=== PATIENT | female | born 1935 | race Caucasian/White ===

== ENCOUNTER → 2016-12-24 | Outpatient (CLI) | payer MEDICARE, BC ==
--- NOTE | 2016-12-24 11:40 | XR ---
EXAMINATION TYPE: XR Hip Bilateral and AP pelvis DATE OF EXAM: 12/24/2016 COMPARISON: NONE HISTORY: Bilateral hip pain. TECHNIQUE: A single AP view of the pelvis is obtained. Two views of the bilateral hips are obtained. FINDINGS: There is no acute fracture/dislocation evident in the pelvis. There is mild symmetric ceph alad joint space narrowing of the femoral acetabular joints with acetabular roof sclerosis. The over lying soft tissue appears unremarkable. No focal lytic or sclerotic lesion seen in the maximal femurs. Levoconvex scoliotic curvature of the lower lumbar spine is appreciated with moderate to severe degenerative change at L4-L5 and moderate c hange at L5-S1 demonstrates facet arthropathy, intervertebral disc space narrowing, and marginal oste ophytes. IMPRESSION: 1. There is no acute fracture or dislocation in the pelvis hips. 2. Mild bilateral osteoarthrosis. 4. Degenerative changes of the visualized lumbosacral spine.
--- NOTE | 2016-12-24 11:55 | XR ---
EXAMINATION TYPE: XR lumbosacral spine min 4V DATE OF EXAM: 12/24/2016 CLINICAL HISTORY: pain COMPARISON: NONE TECHNIQUE: Frontal, lateral, and oblique images of the lumbar spine are obtained. FINDINGS: There are 5 lumbar type vertebral bodies identified. Severe multilevel degenerative disc d isease with vacuum disc at L3-4 and L4-5. Endplate sclerosis and mild ventral spondylosis. Severe low er lumbar facet joint arthropathy. Grade 1 anterolisthesis L4 and L5 of 9.6 mm. No compression fractu re or bony destructive process seen. Borderline infrarenal abdominal aortic aneurysm. IMPRESSION: Multilevel degenerative disc disease and spondylosis.
== END ==
LOC: RADXRMAIN 11:09
PROVIDERS: ATTEND Internal Medicine
DX: M51.36 Other intervertebral disc degeneration, lumbar region (principal); M47.817 Spondylosis without myelopathy or radiculopathy, lumbosacral region; M16.0 Bilateral primary osteoarthritis of hip
CPT/HCPCS: 72110; 73521

== ENCOUNTER → 2017-07-14 | Outpatient (CLI) | payer MEDICARE, BC ==
[2017-07-14 12:03] LABS: Basophils % (A) 0 %; Eosinophils # (A) 0.2 k/uL (0-0.7); Eosinophils % (A) 2 %; HCT 37.6 % (34.0-46.0); HGB 12.2 gm/dL (11.4-16.0); Lymphocytes # (A) 1.9 k/uL (1.0-4.8); Lymphocytes % (A) 23 %; MCH 30.4 pg (25.0-35.0); MCHC 32.5 g/dL (31.0-37.0); MCV 93.5 fL (80.0-100.0); Mean Platelet Volume 7.1; Monocytes # (A) 0.5 k/uL (0-1.0); Monocytes % (A) 6 %; Neutrophils # (A) 5.3 k/uL (1.3-7.7); Neutrophils % (A) 66 %; Platelet Count 281 k/uL (150-450); RBC 4.02 m/uL (3.80-5.40); WBC 8.1 k/uL (3.8-10.6)
[2017-07-14 12:18] LABS: Albumin 4.2 g/dL (3.5-5.0); Calcium 10.2 mg/dL (8.4-10.2); Total Bilirubin 0.6 mg/dL (0.2-1.3); Total Protein 7.4 g/dL (6.3-8.2)
[2017-07-14 12:30] LABS: T4, Free (Free Thyroxine) 1.13 ng/dL (0.78-2.19)
[2017-07-14 13:02] LABS: Potassium 4.5 mmol/L (3.5-5.1)
== END | disposition home or self-care (01) ==
LOC: LABWHC1 10:47
PROVIDERS: ATTEND Internal Medicine
DX: E78.5 Hyperlipidemia, unspecified (principal); I10 Essential (primary) hypertension; R68.89 Other general symptoms and signs
CPT/HCPCS: 36415; 80053; 80061; 84439; 84443; 85025

== ENCOUNTER 2018-12-10 15:27 | Inpatient (IN) | payer MEDICARE, BC ==
[2018-12-10] MEDS ORDERED: SODIUM CHLORIDE 0.9% 1,000 ML IV STA (15:33)
[2018-12-10] MEDS ORDERED: MORPHINE SULFATE 4 MG/ML SYRINGE IVP STA (15:34)
--- NOTE | 2018-12-10 15:34 | ED ---
Fall HPI - General Stated Complaint: Fall Time Seen by Provider: 12/10/18 15:33 Source: RN notes reviewed, old records reviewed Mode of arrival: EMS Limitations: no limitations - History of Present Illness Initial Comments: This is an 83-year-old female the ER status post fall. Patient fall off a step when she tripped or lost her balance complaining of significant right leg pain with deformity noted per EMS in significant right wrist pain. Patient denies loss of consciousness no blood thinners. No prior orthopedic surgery MD Complaint: fall -: minutes(s) Fall From: standing (1.), from height (distance) When Fall Occurred: 1 hour AMBULATORY CARE Fall Witnessed: yes, by family Place Fall Occurred: home Loss of Consciousness: none Prolonged Down Time?: no Symptoms Prior to Fall: none Location: pelvis Location - Extremities: Right: Forearm, Hand, Knee Severity: severe Severity scale (1-10): 7 Quality: stabbing Context: tripped/slipped Associated Symptoms: denies - Related Data Home Medications Medication Instructions Recorded Confirmed Omeprazole 20 mg PO DAILY 12/10/18 12/10/18 amLODIPine [Norvasc] 5 mg PO HS 12/10/18 12/10/18 Allergies Allergy/AdvReac Type Severity Reaction Status Date / Time Penicillins Allergy Unknown Verified 12/10/18 16:05 latex AdvReac Itching Verified 12/10/18 16:51 Review of Systems ROS Statement: Those systems with pertinent positive or pertinent negative responses have been documented in the HPI. ROS Other: All systems not noted in ROS Statement are negative. Past Medical History - Past Family History Father Family Medical History: Cancer Additional Family Medical History / Comment(s): lung cancer- age 62 General Exam - General Exam Comments Initial Comments: Right wrist deformity, right knee deformity Patient has positive radial pulses right wrist Patient has dorsalis pedis and posterior tibialis pulses right lower extremity General appearance: alert, in no apparent distress Head exam: Present: atraumatic, normocephalic, normal inspection Eye exam: Present: normal appearance, PERRL, EOMI. Absent: scleral icterus, conjunctival injection, periorbital swelling ENT exam: Present: normal exam, mucous membranes moist Neck exam: Present: normal inspection. Absent: tenderness, meningismus, lymphadenopathy Respiratory exam: Present: normal lung sounds bilaterally. Absent: respiratory distress, wheezes, rales, rhonchi, stridor Cardiovascular Exam: Present: regular rate, normal rhythm, normal heart sounds. Absent: systolic murmur, diastolic murmur, rubs, gallop, clicks GI/Abdominal exam: Present: soft, normal bowel sounds. Absent: distended, tenderness, guarding, rebound, rigid Extremities exam: Present: normal inspection, full ROM, normal capillary refill. Absent: tenderness, pedal edema, joint swelling, calf tenderness Back exam: Present: normal inspection Neurological exam: Present: alert, oriented X3, CN II-XII intact Psychiatric exam: Present: normal affect, normal mood Skin exam: Present: warm, dry, intact, normal color. Absent: rash Course Vital Signs 12/10/18 12/10/18 15:34 17:20 Temperature 98.0 F 98.0 F Pulse Rate 76 72 Respiratory 18 18 Rate Blood Pressure 159/88 128/76 O2 Sat by Pulse 100 97 Oximetry - Reevaluation(s) Reevaluation #1: Medical record is reviewed and patient has pain control Spoke with patient's family regarding care of her , they are aware Patient's fractures are splinted, good pulses noted Procedures - Orthopedic Splinting/Casting Injury #1 Side: right Upper Extremity Injury Location: wrist Upper Extremity Immobilizer: wrist splint Injury #2 Side: right Lower Extremity Injury Location: knee Lower Extremity Immobilizer: knee immobilizer Medical Decision Making - Medical Decision Making 83 female the ER for evaluation, patient will be admitted for evaluation breath. Surgery for both wrist and femur fractures right-sided. Patient has good pain control currently - Lab Data Result diagrams: 12/10/18 16:00 12/10/18 16:00 Lab Results 12/10/18 12/10/18 12/10/18 Range/Units 16:00 16:00 16:00 WBC 7.1 (3.8-10.6) k/uL RBC 3.74 L (3.80-5.40) m/uL Hgb 11.6 (11.4-16.0) gm/dL Hct 34.7 (34.0-46.0) % MCV 93.0 (80.0-100.0) fL MCH 31.0 (25.0-35.0) pg MCHC 33.3 (31.0-37.0) g/dL RDW 14.1 (11.5-15.5) % Plt Count 275 (150-450) k/uL Neutrophils % 77 % Lymphocytes % 14 % Monocytes % 5 % Eosinophils % 2 % Basophils % 1 % Neutrophils # 5.5 (1.3-7.7) k/uL Lymphocytes # 1.0 (1.0-4.8) k/uL Monocytes # 0.4 (0-1.0) k/uL Eosinophils # 0.1 (0-0.7) k/uL Basophils # 0.0 (0-0.2) k/uL PT 10.1 (9.0-12.0) sec INR 0.9 (<1.2) APTT 23.2 (22.0-30.0) sec Sodium 140 (137-145) mmol/L Potassium 3.9 (3.5-5.1) mmol/L Chloride 108 H (98-107) mmol/L Carbon Dioxide 23 (22-30) mmol/L Anion Gap 9 mmol/L BUN 25 H (7-17) mg/dL Creatinine 0.89 (0.52-1.04) mg/dL Est GFR (CKD-EPI)AfAm 68 (>60 ml/min/1.73 sqM) Est GFR (CKD-EPI)NonAf 59 (>60 ml/min/1.73 sqM) Glucose 119 H (74-99) mg/dL Calcium 9.1 (8.4-10.2) mg/dL Total Bilirubin 0.4 (0.2-1.3) mg/dL AST 23 (14-36) U/L ALT 23 (9-52) U/L Alkaline Phosphatase 81 (38-126) U/L Troponin I (0.000-0.034) ng/mL Total Protein 6.2 L (6.3-8.2) g/dL Albumin 3.5 (3.5-5.0) g/dL Serum Alcohol <10 mg/dL Blood Type Blood Type Recheck Antibody Screen Spec Expiration Date 12/10/18 12/10/18 Range/Units 16:00 16:00 WBC (3.8-10.6) k/uL RBC (3.80-5.40) m/uL Hgb (11.4-16.0) gm/dL Hct (34.0-46.0) % MCV (80.0-100.0) fL MCH (25.0-35.0) pg MCHC (31.0-37.0) g/dL RDW (11.5-15.5) % Plt Count (150-450) k/uL Neutrophils % % Lymphocytes % % Monocytes % % Eosinophils % % Basophils % % Neutrophils # (1.3-7.7) k/uL Lymphocytes # (1.0-4.8) k/uL Monocytes # (0-1.0) k/uL Eosinophils # (0-0.7) k/uL Basophils # (0-0.2) k/uL PT (9.0-12.0) sec INR (<1.2) APTT (22.0-30.0) sec Sodium (137-145) mmol/L Potassium (3.5-5.1) mmol/L Chloride (98-107) mmol/L Carbon Dioxide (22-30) mmol/L Anion Gap mmol/L BUN (7-17) mg/dL Creatinine (0.52-1.04) mg/dL Est GFR (CKD-EPI)AfAm (>60 ml/min/1.73 sqM) Est GFR (CKD-EPI)NonAf (>60 ml/min/1.73 sqM) Glucose (74-99) mg/dL Calcium (8.4-10.2) mg/dL Total Bilirubin (0.2-1.3) mg/dL AST (14-36) U/L ALT (9-52) U/L Alkaline Phosphatase (38-126) U/L Troponin I <0.012 (0.000-0.034) ng/mL Total Protein (6.3-8.2) g/dL Albumin (3.5-5.0) g/dL Serum Alcohol mg/dL Blood Type O Positive Blood Type Recheck CABO Indicated Antibody Screen NEGATIVE Spec Expiration Date 12/13/20182299 - Radiology Data Radiology results: report reviewed (CT brain C-spine negative for acute disease, x-ray right wrist x-ray right knee does show both Colles' fracture right wrist and distal femur fracture right femur), image reviewed Disposition Clinical Impression: Fall, Closed fracture of right distal femur, Right wrist fracture Disposition: ADMITTED IP TO THIS [facility] Condition: Serious Is patient prescribed a controlled substance at d/c from ED?: No
--- NOTE | 2018-12-10 15:58 | XR ---
EXAMINATION TYPE: XR knee limited RT DATE OF EXAM: 12/10/2018 COMPARISON: NONE HISTORY: Pain TECHNIQUE: 3 views FINDINGS: There is a supracondylar comminuted fracture of the distal femur. There is posterior displa cement of the distal major fragments 2 cm. There is no dislocation. Proximal tibia and fibula appear intact. IMPRESSION: Acute supracondylar fracture of the distal femur.
[2018-12-10 16:15] LABS: Basophils % (A) 1 %; Eosinophils # (A) 0.1 k/uL (0-0.7); Eosinophils % (A) 2 %; HCT 34.7 % (34.0-46.0); HGB 11.6 gm/dL (11.4-16.0); Lymphocytes % (A) 14 %; MCHC 33.3 g/dL (31.0-37.0); Mean Platelet Volume 6.9; Monocytes # (A) 0.4 k/uL (0-1.0); Monocytes % (A) 5 %; Neutrophils # (A) 5.5 k/uL (1.3-7.7); Neutrophils % (A) 77 %; Platelet Count 275 k/uL (150-450); RBC 3.74 m/uL (3.80-5.40); RDW 14.1 % (11.5-15.5); WBC 7.1 k/uL (3.8-10.6)
[2018-12-10 16:23] LABS: INR 0.9 (<1.2); Partial Thromboplastin Time 23.2 sec (22.0-30.0); Prothrombin Time 10.1 sec (9.0-12.0)
[2018-12-10 16:25] LABS: ALT 23 U/L (9-52); AST 23 U/L (14-36); African American GFR (CKD) 68 (>60 ml/min/1.73 sqM); Albumin 3.5 g/dL (3.5-5.0); Alcohol <10 mg/dL; Alkaline Phosphatase 81 U/L (38-126); Anion Gap 9 mmol/L; Blood Urea Nitrogen 25 mg/dL (7-17); Calcium 9.1 mg/dL (8.4-10.2); Carbon Dioxide 23 mmol/L (22-30); Chloride 108 mmol/L (98-107); Glucose 119 mg/dL (74-99); Potassium 3.9 mmol/L (3.5-5.1); Sodium 140 mmol/L (137-145); Total Bilirubin 0.4 mg/dL (0.2-1.3); Total Protein 6.2 g/dL (6.3-8.2)
--- NOTE | 2018-12-10 16:39 | CT ---
EXAMINATION TYPE: CT brain michelle bruner DATE OF EXAM: 12/10/2018 COMPARISON: None HISTORY: pt fall down step. Headache. Neck pain. CT DLP: 1253.7 mGycm Automated exposure control for dose reduction was used. TECHNIQUE: CT scan of the head and cervical spine are performed without contrast. FINDINGS: There is some cerebral cortical atrophy. There is no mass effect nor midline shift. There is no sign of intracranial hemorrhage. Calvarium is intact. There is mucosal thickening in the left maxillary sinus. Cervical vertebra have normal alignment. There is narrowing of the C4-5 C5-6 C6-7 disc spaces with sp ur formation. Facet joints are intact. Skull base is intact. There is no evidence of a fracture. Ther e is no bony destructive process. There is pleural thickening in the lung apices. IMPRESSION: Cerebral atrophy. No acute intracranial abnormality. Left maxillary sinusitis. Spondylotic changes in the cervical spine. No fracture.
--- NOTE | 2018-12-10 17:31 | XR ---
EXAMINATION TYPE: XR wrist complete RT DATE OF EXAM: 12/10/2018 COMPARISON: NONE HISTORY: Pain after falling TECHNIQUE: 4 views FINDINGS: There is impacted comminuted transverse fracture of the distal radius. There is nondisplace d fracture ulnar styloid process. Carpal bones are intact. Detail is limited by the cast. There is sa tisfactory position of the fragments. IMPRESSION: Radius and ulna fractures as above. No complicating process seen. Fractures appear acute.
--- NOTE | 2018-12-10 19:42 | XR ---
EXAMINATION TYPE: XR chest 1V portable DATE OF EXAM: 12/10/2018 COMPARISON: 06/30/2017 HISTORY: Fall. Pain. TECHNIQUE: Single frontal view of the chest is obtained. FINDINGS: There is no heart failure nor confluent pneumonic infiltrate. There is left clavicle old h ealed fracture. Costophrenic angles are clear. IMPRESSION: No active cardiopulmonary disease. No change.
[2018-12-10] MEDS: amLODIPine 5 MG TAB PO SCH (20:42)
[2018-12-10 22:12] LABS: Appearance,Urine Clear (Clear); Bacteria,Urine Rare /hpf; Bilirubin,Urine Negative (Negative); Blood,Urine Negative (Negative); Color,Urine Yellow; Glucose,Urine (UA) Negative (Negative); Ketones,Urine 1+ (Negative); Leukocyte Esterase,Urine Trace (Negative); Mucus,Urine Rare /hpf; Nitrite,Urine Negative (Negative); Protein,Urine Negative (Negative); RBC,Urine 1 /hpf (0-5); Specific Gravity,Urine 1.014 (1.001-1.035); Squamous Epithelial Cell,Urine <1 /hpf (0-4); Urobilinogen,Urine <2.0 mg/dL (<2.0); WBC,Urine 9 /hpf (0-5)
[2018-12-11] MEDS: MORPHINE SULFATE 4 MG/ML SYRINGE IVP PRN ×2 (00:29→08:05)
--- NOTE | 2018-12-11 02:12 | CONS ---
CONSULTATION REASON FOR CONSULTATION: Advice regarding hypertension, GERD, multiple medical issues requested by Dr. Newman. HISTORY OF PRESENT ILLNESS: This is 83-year-old woman with a past history of multiple medical problems including hypertension, GERD, being followed by Dr. Livingston in the outpatient setting. The patient apparently missed a step and the patient fell down and the patient had multiple fractures. The patient was noted to have closed fracture of the right distal femur and right and right wrist fracture and patient evaluation and treatment. CT scan of the head and pelvis and also of the cervical spine was also done which showed no acute abnormality and spondylitic changes and cerebral atrophy. There is no history of fever, rigors, no headache, loss of consciousness or seizures. Previous exercise tolerance appears to be excellent. There is no history of cardiorespiratory illness. PAST MEDICAL HISTORY: Of GERD, hypertension. MEDICATIONS: Prior to admission include home medications are: 1. Norvasc 5 mg p.o. daily. 2. Omeprazole 20 mg daily. ALLERGIES: PENICILLIN. LATEX. FAMILY HISTORY: No history of heart disease or strokes in the family. SOCIAL HISTORY: No history of smoking. No history of alcohol intake. REVIEW OF SYSTEMS: ENT: Diminished vision. Diminished hearing. Cardiovascular: No angina or hemoptysis. GI no nausea or vomiting. no dysuria. Nervous system: No numbness or weakness. ALLERGY/IMMUNOLOGY: No asthma or hay fever. MUSCULOSKELETAL: As mentioned hematology. HEMATOLOGY/ONCOLOGY: No history of anemia. ENDOCRINE: No history of diabetes or hypothyroidism. CONSTITUTIONAL: As mentioned earlier. DERMATOLOGY: Negative. RHEUMATOLOGY negative. PSYCHIATRY as mentioned earlier. PHYSICAL EXAMINATION: Alert and oriented times three. Pulse 72, blood pressure 128/76, respiration 18, temperature 98 degrees, pulse ox 97% on room air. HEENT is conjunctivae normal. Oral mucosa moist. Neck is no jugular venous distention. No carotid bruit. No lymph enlargement. Cardiovascular S1-S2 respiration. Breath sounds diminished in the the bases. No rhonchi. No crackles. ABDOMEN: Soft, nontender. No mass palpable. Legs status post right distal femur fracture fixation of the right arm, status post wrist fracture. NERVOUS SYSTEM: Higher functions as mentioned earlier, moves all four limbs. Lymphatics: No lymph nodes palpable in the neck, axillae or groin. SKIN: No ulcer, rash or bleeding. arthropathy. LABS: CBC within normal limits. Sodium 140 potassium 3.9 and glucose 119. ASSESSMENT: 1. Status post fall and right and closed right distal femur fracture and right wrist fracture. 2. Hypertension. 3. Gastroesophageal reflux disease. 4. Increased random blood sugar. 6. Mild to moderate protein calorie malnutrition with BMI of 19.7 Recommendations and discussion This 83-year-old woman who presented with multiple medical issues, at this time I recommend to continue current management and treatment. I would also recommend baseline EKG and chest x-ray. The patient cleared for surgery. The patient had excellent exercise tolerance and we will follow the patient after surgery we will follow the patient closely with you. Thank you Dr Newman for letting us participate in the care of this patient. MMKELSEYL / SHAMIRN: [id number] / MTDD
[2018-12-11] MEDS: PANTOPRAZOLE 40 MG TABLET PO SCH (08:03)
[2018-12-11 09:42] LABS: Glucose,Whole Blood 118 mg/dL (75-99)
--- NOTE | 2018-12-11 11:59 | CT ---
EXAMINATION TYPE: CT knee RT wo/w con DATE OF EXAM: 12/11/2018 COMPARISON: X-ray 12/10/2018 HISTORY: knee pain, presurgical planning CT DLP: 241 mGycm Automated exposure control for dose reduction was used. CONTRAST: Performed without and with IV Contrast, patient injected with 100 mL of Isovue 300. FINDINGS: There is a comminuted displaced fracture involving the distal diaphysis of the right femur extending to the articular surface displacement. Large area of soft tissue edema or hematoma noted. There appea rs to be evidence of a popliteal fossa cyst measuring approximately 2.0 cm. Pre-existing arthropathy of the tricompartment space noted with no erosive changes. Spurring involvin g the medial femoral condyle noted. IMPRESSION: DISPLACED COMMINUTED FRACTURE OF THE DISTAL FEMUR EXTENDING TO THE ARTICULAR SURFACE. EXTENSIVE SOFT TISSUE EDEMA OR HEMATOMA NOTED. POPLITEAL FOSSA CYST MEASURING APPROXIMATELY 2 CM.
[2018-12-11] MEDS: SULFAMETHOX-TMP 800-160MG 1 EACH TAB PO SCH ×2 (14:29→21:52)
[2018-12-11] MEDS: LACTATED RINGERS 1,000 ML IV SCH (14:29)
[2018-12-11] MEDS: HEPARIN SODIUM,PORCINE 5,000 UNIT/ML 1 ML VIAL SQ SCH ×2 (14:29→21:52)
[2018-12-11] MEDS: HYDROcodone/APAP 7.5-325MG 1 EACH TAB PO PRN (14:36)
--- NOTE | 2018-12-11 14:45 | P.HPOR ---
History of Present Illness H&P Date: 12/11/18 Chief Complaint: Right femur fracture, Right wrist fracture Patient is a pleasant 83 year old female seen at bedside this morning. She was admitted through the ED yesterday after a fall at home resulted in right wrist and leg injuries. She states she misstepped coming down some steps and fell causing injury to her right leg and wrist. She denies new numbness or tingling to the right upper and lower extremities. She has pain as expected. No other complaints Review of Systems All systems: negative Constitutional: Denies chills, Denies fever Eyes: denies blurred vision, denies pain Ears, nose, mouth and throat: Denies headache, Denies sore throat Cardiovascular: Denies chest pain, Denies shortness of breath Respiratory: Denies cough Gastrointestinal: Denies abdominal pain, Denies diarrhea, Denies nausea, Denies vomiting Genitourinary: Denies dysuria, Denies hematuria Musculoskeletal: Denies myalgias Integumentary: Denies pruritus, Denies rash Neurological: Denies numbness, Denies weakness Psychiatric: Denies anxiety, Denies depression Endocrine: Denies fatigue, Denies weight change Past Medical History Past Medical History: GERD/Reflux, Hypertension History of Any Multi-Drug Resistant Organisms: None Reported Past Surgical History: Hysterectomy, Orthopedic Surgery Additional Past Surgical History / Comment(s): back surgery, kindey stones- surgery to remove stones, left shoulder- plate Past Anesthesia/Blood Transfusion Reactions: Postoperative Nausea & Vomiting (PONV) Smoking Status: Never smoker - Past Family History Father Family Medical History: Cancer Additional Family Medical History / Comment(s): lung cancer- age 62 Medications and Allergies Home Medications Medication Instructions Recorded Confirmed Type Omeprazole 20 mg PO DAILY 12/10/18 12/10/18 History amLODIPine [Norvasc] 5 mg PO HS 12/10/18 12/10/18 History Allergies Allergy/AdvReac Type Severity Reaction Status Date / Time Penicillins Allergy Unknown Verified 12/10/18 16:05 latex AdvReac Itching Verified 12/10/18 16:51 Physical Examination RUE shows exam consistent with distal radius fracture where there is swelling and echymosis. NVI with sensation and motor distally in all digits. 2+ radial pulse present and less than 2 sec cap refill. RLE shows no deformity. There is swelling and exchymosis at the right knee. ROM not tested due to fracture. No wounds or erythema. Calf is SNT. NVI distally. 2+ DP pulse and less than 2 sec cap refill present. Results Xrays of the right wrist shows a comminuted impacted dorsal angulated distal radius fracture. Xrays of right knee shows distal femur fracture that is comminuted and displaced. - Labs Labs: Abnormal Lab Results - Last 24 Hours (Table) 12/10/18 12/10/18 12/10/18 Range/Units 16:00 16:00 21:57 RBC 3.74 L (3.80-5.40) m/uL Chloride 108 H (98-107) mmol/L BUN 25 H (7-17) mg/dL Glucose 119 H (74-99) mg/dL POC Glucose (mg/dL) (75-99) mg/dL Total Protein 6.2 L (6.3-8.2) g/dL Urine Ketones 1+ H (Negative) Ur Leukocyte Esterase Trace H (Negative) Urine WBC 9 H (0-5) /hpf Urine Bacteria Rare H (None) /hpf Urine Mucus Rare H (None) /hpf 12/11/18 Range/Units 09:39 RBC (3.80-5.40) m/uL Chloride (98-107) mmol/L BUN (7-17) mg/dL Glucose (74-99) mg/dL POC Glucose (mg/dL) 118 H (75-99) mg/dL Total Protein (6.3-8.2) g/dL Urine Ketones (Negative) Ur Leukocyte Esterase (Negative) Urine WBC (0-5) /hpf Urine Bacteria (None) /hpf Urine Mucus (None) /hpf H & H 12/10/18 Range/Units 16:00 Hgb 11.6 (11.4-16.0) gm/dL Hct 34.7 (34.0-46.0) % Coagulation 12/10/18 Range/Units 16:00 INR 0.9 (<1.2) Result Diagrams: 12/10/18 16:00 12/10/18 16:00 - Diagnostic results Wrist/Hand x-ray: report reviewed, image reviewed Knee x-ray: report reviewed, image reviewed Assessment and Plan (1) Closed fracture of right distal femur Narrative/Plan: Patient has been seen by Dr. Baxter. The plan is to proceed with surgical intervention December 12 including an ORIF of right distal femur fracture. We will also reduce the right wrist while she is in the OR. She has been cleared for surgery by medicine. She is NPO after MN. The procedure has been scheduled/boarded. She will need placement post operatively. Current Visit: Yes Status: Acute Priority: Medium Code(s): S72.401A - UNSP FRACTURE OF LOWER END OF RIGHT FEMUR, INIT FOR CLOS FX SNOMED Code(s): 994713167 (2) Right wrist fracture Current Visit: Yes Status: Acute Priority: Medium Code(s): S62.101A - FRACTURE OF UNSP CARPAL BONE, RIGHT WRIST, INIT FOR CLOS FX SNOMED Code(s): 419575046 Time with Patient: Less than 30
--- NOTE | 2018-12-11 15:10 | P.CNPUL ---
History of Present Illness Consult date: 12/11/18 Chief complaint: Fall, right femur fracture History of present illness: A 53-year-old female patient, a primary of Dr. Francis, came into the ED after she fell at home and she sustained a fracture to her right wrist and femur. The patient stated that she missed a step as she was coming down the steps and she fell causing injury to herself. She is neurovascularly intact. Currently she is in bed resting comfortable. No issues with pain. The CAT scan of the brain showed cerebral atrophy. There was evidence of some left maxillary sinus di sease. Spondylitic changes in the cervical spine without any fracture. X-ray of the knee was within normal limits. X-ray of the wrist showed a fracture in the radius and ulna which would acute and the patient is currently wearing a soft cast and render x-ray of the lower extremity showed an acute supracondylar fracture of the distal femur on the right. The patient was seen by Dr. Baxter and the patient will be taken to the operating room tomorrow. No chest pain. No shortness of breath. No altered mentation. There is a closed fracture of the right distal femur. She is hemodynamically stable at this point in time. Review of Systems Constitutional: Denies chills, Denies fever Eyes: denies as per HPI, denies blurred vision, denies bulging eye, denies decreased vision, denies diplopia, denies discharge, denies dry eye, denies irritation, denies itching, denies pain, denies photophobia, denies loss of peripheral vision, denies loss of vision, denies tunnel vision/blind spots Ears: deny: decreased hearing, ear discharge, earache, tinnitus Ears, nose, mouth and throat: Denies headache, Denies sore throat Breasts: absent: as per HPI, change in shape, gynecomastia, masses, nipple discharge, pain, skin changes, swelling Cardiovascular: Denies chest pain, Denies shortness of breath Respiratory: Reports as per HPI Gastrointestinal: Denies abdominal pain, Denies diarrhea, Denies nausea, Denies vomiting Genitourinary: Denies dysuria, Denies hematuria Menstruation: Reports as per HPI Musculoskeletal: Reports fractures, Reports limitation of motion Musculoskeletal: absent: ankle pain, ankle stiffness, ankle swelling Integumentary: Denies pruritus, Denies rash Neurological: Reports as per HPI Psychiatric: Reports as per HPI Endocrine: Reports as per HPI Hematologic/Lymphatic: Reports as per HPI Allergic/Immunologic: Reports as per HPI Past Medical History Past Medical History: GERD/Reflux, Hypertension History of Any Multi-Drug Resistant Organisms: None Reported Past Surgical History: Hysterectomy, Orthopedic Surgery Additional Past Surgical History / Comment(s): back surgery, kindey stones- surgery to remove stones, left shoulder- plate Past Anesthesia/Blood Transfusion Reactions: Postoperative Nausea & Vomiting (PONV) Smoking Status: Never smoker - Past Family History Father Family Medical History: Cancer Additional Family Medical History / Comment(s): lung cancer- age 62 Medications and Allergies Home Medications Medication Instructions Recorded Confirmed Type Omeprazole 20 mg PO DAILY 12/10/18 12/10/18 History amLODIPine [Norvasc] 5 mg PO HS 12/10/18 12/10/18 History Allergies Allergy/AdvReac Type Severity Reaction Status Date / Time Penicillins Allergy Unknown Verified 12/10/18 16:05 latex AdvReac Itching Verified 12/10/18 16:51 Physical Exam Vitals: Vital Signs Temp Pulse Pulse Resp BP BP Pulse Ox 12/11/18 14:21 97.6 F 79 14 125/62 97 12/11/18 07:00 98.2 F 73 16 144/66 93 L 12/11/18 01:10 98.2 F 68 18 128/67 97 12/10/18 20:32 98.1 F 84 16 125/54 97 12/10/18 17:20 98.0 F 72 18 128/76 97 12/10/18 15:34 98.0 F 76 18 159/88 100 Intake and Output 12/11/18 12/11/18 12/11/18 06:59 14:59 22:59 Intake Total 0 110 Output Total 800 Balance -800 110 Intake: Oral 0 110 Output: Urine 800 Other: # Voids 2 1 The patient appeared well nourished and normally developed. Vital signs as documented. Head exam is unremarkable. No scleral icterus or corneal arcus noted. Neck is without jugular venous distension, thyromegaly, or carotid bruits. Carotid upstrokes are brisk bilaterally. Lungs are clear to auscultation and percussion. Cardiac exam reveals the PMI to be normally sized and situated. Rhythm is regular. First and second heart sounds normal. No murmurs, rubs or gallops. Abdominal exam reveals normal bowel sounds, no masses, no organomegaly and no aortic enlargement. Extremities are nonedematous and both femoral and pedal pulses are normal. The patient is wearing a soft cast in the right upper extremity. There is also in place to have right leg. There is a closed fracture and there are no overlying skin changes. Neurologically the patient is awake and alert and there is no focal neurological deficit. Results - Laboratory Findings CBC and BMP: 12/10/18 16:00 12/10/18 16:00 PT/INR, D-dimer PT 10.1 sec (9.0-12.0) 12/10/18 16:00 INR 0.9 (<1.2) 12/10/18 16:00 Abnormal lab findings: Abnormal Labs 12/10/18 12/10/18 12/10/18 16:00 16:00 21:57 RBC 3.74 L Chloride 108 H BUN 25 H Glucose 119 H POC Glucose (mg/dL) Total Protein 6.2 L Urine Ketones 1+ H Ur Leukocyte Esterase Trace H Urine WBC 9 H Urine Bacteria Rare H Urine Mucus Rare H 12/11/18 09:39 RBC Chloride BUN Glucose POC Glucose (mg/dL) 118 H Total Protein Urine Ketones Ur Leukocyte Esterase Urine WBC Urine Bacteria Urine Mucus Assessment and Plan Plan: 1) fracture of the right femur. The patient was seen by orthopedic surgery and the patient be taken to the operating room for ORIF of the right distal femur fracture in the morning. 2 right wrist fracture 3 fall 4 hypertension 5 osteoarthritis 6 acid reflux 7 remote history of kidney stones 8 elderly with a body mass index of 19.7 Plan No pulmonary contraindications for surgery. Proceed with surgery in a.m. Prov cookie the patient incentive spirometer. Continue fluid r and offered adequate pain control with morphine 4 mg every 4 hours and when necessary basis. Heparin subcu for DVT prophylaxis. We'll proceed with surgery and will attend for any complications should they occur postop. Patient is stable. She is agreeable for surgery in a.m. She will need a prolonged rehabilitation knowing her surgery. Orthopedic surgeries on the case.
[2018-12-11] MEDS: ONDANSETRON 4 MG/2 ML VIAL IVP PRN (17:54)
--- NOTE | 2018-12-11 20:42 | PN ---
PROGRESS NOTE DATE OF SERVICE: 12/11/2018 This 83-year-old woman who was admitted with right distal femur fracture and wrist fracture is being evaluated by Dr. Baxter. Dr. Baxter is tentatively planning surgery tomorrow. The patient is recommended only clear liquids tomorrow, breakfast and n.p.o. after that. Otherwise, there is no history of chest pain, palpitation, headache, loss of consciousness, seizures. Previous exercise tolerance excellent. EXAM: Alert and oriented x3. Pulse 79, blood pressure 120/62, respiration 14, temperature 97.2, pulse ox 97% on room air. HEENT: Conjunctivae normal. NECK: No jugular venous distention. CARDIOVASCULAR: S1, S2 muffled. RESPIRATIONS: Breath sounds diminished in the bases. No rhonchi. No crackles. ABDOMEN is soft, nontender. LEGS status post fracture as mentioned. NERVOUS SYSTEM: No focal deficits. LABS: WBC 7.2, hemoglobin 11.6 and glucose 119 and 118. ASSESSMENT: 1. Status post fall and right distal femoral fracture and as well as right wrist fracture. 2. Hypertension. 3. Gastroesophageal reflux disease. 4. Increased random blood sugar. 5. Mild to moderate protein calorie malnutrition with BMI of 19.7. RECOMMENDATIONS AND DISCUSSION: In this 83-year-old woman who presented after fractures at this time. Patient medically stable. Patient is cleared for surgery and I would recommend DVT prophylaxis and possible PT/OT evaluation and dietary recommendations. Dietary evaluation for diminished BMI. Otherwise, continue to monitor. The patient is FULL CODE. Further recommendations to follow. Discussed with Dr. Baxter and staff and also the patient and family. MMODL / IJN: [id number] /
[2018-12-11] MEDS: amLODIPine 5 MG TAB PO SCH (21:52)
[2018-12-12] MEDS: LACTATED RINGERS 1,000 ML IV SCH (09:00)
[2018-12-12 10:11] VITALS: BMI 19.7
[2018-12-12] MEDS: HEPARIN SODIUM,PORCINE 5,000 UNIT/ML 1 ML VIAL SQ SCH ×2 (10:45→22:17)
[2018-12-12] MEDS: PANTOPRAZOLE 40 MG TABLET PO SCH (10:49)
[2018-12-12] MEDS: SULFAMETHOX-TMP 800-160MG 1 EACH TAB PO SCH (10:49)
--- NOTE | 2018-12-12 10:52 | P.PN ---
Subjective Progress Note Date: 12/12/18 Principal diagnosis: Right femur and right wrist fractures. A 53-year-old female patient, a primary of Dr. Francis, came into the ED after she fell at home and she sustained a fracture to her right wrist and femur. The patient stated that she missed a step as she was coming down the steps and she fell causing injury to herself. She is neurovascularly intact. Currently she is in bed resting comfortable. No issues with pain. The CAT scan of the brain showed cerebral atrophy. There was evidence of some left maxillary sinus disease. Spondylitic changes in the cervical spine without any fracture. X-ray of the knee was within normal limits. X-ray of the wrist showed a fracture in the radius and ulna which would acute and the patient is currently wearing a soft cast and render x-ray of the lower extremity showed an acute supracondylar fracture of the distal femur on the right. The patient was seen by Dr. Baxter and the patient will be taken to the operating room tomorrow. No chest pain. No shortness of breath. No altered mentation. There is a closed fracture of the right distal femur. She is hemodynamically stable at this point in time. The patient is seen today 12/12/2018 in follow-up on the regular medical floor. She is currently resting comfortably in bed. Awake and alert in no acute distress. No shortness of breath, cough or congestion. On room air. Her pain is currently well controlled. The plan is for surgical repair of the right femur fracture today and reduction of the right wrist fracture. She is on heparin for DVT prophylaxis. Objective - Vital Signs Vital signs: Vital Signs Temp 97.9 F 12/12/18 07:00 Pulse 86 12/12/18 07:00 Resp 17 12/12/18 07:00 BP 128/62 12/12/18 07:00 Pulse Ox 95 12/12/18 07:00 Intake & Output 12/11/18 12/12/18 12/12/18 18:59 06:59 18:59 Intake Total 110 Balance 110 Weight 57.153 kg Intake: Oral 110 Other: Voiding Method Bedpan # Voids 1 1 - Exam The patient appeared well nourished and normally developed. No pulmonary issues. On room air. Head exam is unremarkable. No scleral icterus or corneal arcus noted. Neck is without jugular venous distension, thyromegaly, or carotid bruits. Carotid upstrokes are brisk bilaterally. Lungs are clear to auscultation and percussion. Cardiac exam reveals the PMI to be normally sized and situated. Rhythm is regular. First and second heart sounds normal. No murmurs, rubs or gallops. Abdominal exam reveals normal bowel sounds, no masses, no organomegaly and no aortic enlargement. Extremities are nonedematous and both femoral and pedal pulses are normal. The patient is wearing a soft cast in the right upper extremity. There is also in place to have right leg. There is a closed fracture and there are no overlying skin changes. Neurologically the patient is awake and alert and there is no focal neurological deficit. - Labs CBC & Chem 7: 12/10/18 16:00 12/10/18 16:00 Assessment and Plan Assessment: Impression: 1) fracture of the right femur. The patient was seen by orthopedic surgery and the patient be taken to the operating room for ORIF of the right distal femur fracture today. 2 right wrist fracture 3 fall 4 hypertension 5 osteoarthritis 6 acid reflux 7 remote history of kidney stones 8 elderly with a body mass index of 19.7 Plan: The patient was seen and evaluated by Dr. De La Cruz. No pulmonary issues. On room air. She'll be educated regarding use of the incentive spirometer and cough and deep breathing exercises. The plan is for surgical repair of the righ t femur fracture and reduction of the right wrist fracture. We'll continue to follow. I, the cosigning physician, performed a history & physical examination of the patient. Lungs sounds are clear. Maintaining good O2 saturations in the 90s on room air. I discussed the assessment and plan of care with my nurse practitioner, Radha Jones. I attest to the above note as dictated by her.
[2018-12-12] MEDS: MORPHINE SULFATE 4 MG/ML SYRINGE IVP PRN (11:08)
[2018-12-12] MEDS ORDERED: KETOROLAC 30 MG/ML 1 ML VIAL IVP PRN (11:25)
[2018-12-12] MEDS ORDERED: ACETAMINOPHEN TAB 325 MG TAB PO PRN (11:26)
[2018-12-12] MEDS: ONDANSETRON 4 MG/2 ML VIAL IVP PRN (13:04)
--- NOTE | 2018-12-12 13:10 | P.PN ---
Subjective 78-year-old female admitted for right wrist and femoral fracture patient will undergo surgical correction today patient is otherwise clinically doing well patient denied any symptoms of urinary tract infection doesn't have any dysuria patient uses an is abnormal but I do not believe patient has deteriorated is no fever or leukocytosis patient does have increased urinary frequency secondary to IV fluids. Antibiotics doesn't need to be continued but patient already received Bactrim which serves preoperative antibiotics. Constitutional: Denied any fatigue denied any fever. Cardio vascular: denied any chest pain, palpitations Gastrointestinal denied any nausea vomiting Pulmonary: Denied any shortness of breath cough Neurologic denied any new focal deficits All inpatient medications were reviewed and appropriate changes in these medications as dictated in the interval history and assessment and plan. Objective - Vital Signs Vital signs: Vital Signs Temp 97.9 F 12/12/18 07:00 Pulse 86 12/12/18 07:00 Resp 17 12/12/18 07:00 BP 128/62 12/12/18 07:00 Pulse Ox 95 12/12/18 07:00 Intake & Output 12/11/18 12/12/18 12/12/18 18:59 06:59 18:59 Intake Total 110 Balance 110 Weight 57.153 kg Intake: Oral 110 Other: Voiding Method Bedpan # Voids 1 1 - Exam PHYSICAL EXAMINATION: GENERAL: The patient is alert and oriented x3, not in any acute distress. Well developed, well nourished. HEENT: Pupils are round and equally reacting to light. EOMI. No scleral icterus. No conjunctival pallor. Normocephalic, atraumatic. No pharyngeal erythema. No thyromegaly. CARDIOVASCULAR: S1 and S2 present. No murmurs, rubs, or gallops. PULMONARY: Chest is clear to auscultation, no wheezing or crackles. ABDOMEN: Soft, nontender, nondistended, normoactive bowel sounds. No palpable organomegaly. MUSCULOSKELETAL: Deferred to orthopedic surgery EXTREMITIES: No cyanosis, clubbing, or pedal edema. NEUROLOGICAL: Gross neurological examination did not reveal any focal deficits. SKIN: No rashes. - Labs CBC & Chem 7: 12/10/18 16:00 12/10/18 16:00 Assessment and Plan Plan: -Right femoral fracture: Patient is low operative risk will go for surgery today to my avoid opiates for pain morphine and will be discussed in patient was started on tramadol because of her GI issues, I cannot use Toradol -Wrist fracture on the right side -Asymptomatic bacteriuria without any evidence of UTI antibiotics will be discontinued received Bactrim today morning -Hypertension I'll discuss my amlodipine to avoid perioperative hypotension -Severe gastric surgery reflux disease and patient is presently on Protonix which will be continued DVT prophylaxis as per primary service
[2018-12-12] MEDS ORDERED: IV FLUID CONTINUATION 1,000 ML IV ONE (15:21)
[2018-12-12] MEDS ORDERED: ONDANSETRON 4 MG/2 ML VIAL IVP ONE (15:46)
[2018-12-12] MEDS ORDERED: HYDROmorphone 0.5 MG/0.5 ML SYRINGE IVP PRN ×3 (15:57)
[2018-12-12] MEDS ORDERED: HYDROcodone/APAP 5-325MG 1 EACH TAB PO PRN (15:57)
[2018-12-12] MEDS ORDERED: HYDROcodone/APAP 10-325MG 1 EACH TAB PO PRN (15:57)
[2018-12-12] MEDS ORDERED: DIAZEPAM 5 MG TAB PO PRN (15:57)
[2018-12-12] MEDS ORDERED: BISACODYL 10 MG SUPP RECTAL PRN (15:57)
[2018-12-12] MEDS ORDERED: NA PHOS,M-B/NA PHOS,DI-BA 133 ML ENEMA RECTAL PRN (15:57)
[2018-12-12] MEDS ORDERED: MAGNESIUM HYDROXIDE 2,400 MG/10 ML CUP PO PRN (15:57)
[2018-12-12] MEDS ORDERED: TEMAZEPAM 15 MG CAP PO PRN (15:57)
[2018-12-12] MEDS ORDERED: NALOXONE 0.4 MG/ML 1 ML VIAL IV PRN ×2 (15:57→19:27)
[2018-12-12] MEDS ORDERED: PHENYLEPHRINE-0.9% NACL SYG 1 MG/10 ML SYRINGE ONE (16:14)
[2018-12-12] MEDS ORDERED: MIDAZOLAM 2 MG/2 ML VIAL ONE (16:14)
[2018-12-12] MEDS ORDERED: KETAMINE 10 MG/ML 20 ML VIAL ONE (16:14)
[2018-12-12] MEDS ORDERED: diphenhydrAMINE 50 MG/ML 1 ML VIAL ONE (16:14)
[2018-12-12] MEDS ORDERED: fentaNYL (PF) 50 MCG/ML 2 ML AMP ONE (16:14)
[2018-12-12] MEDS ORDERED: PROPOFOL 10 MG/ML 20 ML VIAL IV ONE (16:14)
[2018-12-12] MEDS ORDERED: ONDANSETRON 4 MG/2 ML VIAL ONE (16:14)
[2018-12-12] MEDS ORDERED: LACTATED RINGERS 1,000 ML IV ONE (17:57)
[2018-12-12] MEDS ORDERED: NALBUPHINE 10 MG/ML (1 ML AMP) IV PRN (19:27)
--- NOTE | 2018-12-12 19:47 | OP ---
OPERATIVE REPORT DATE OF PROCEDURE: December 12, 2018. PREOPERATIVE DIAGNOSES: 1. Right closed intra-articular distal femur fracture. 2. Right closed extra-articular distal radius fracture. POSTOPERATIVE DIAGNOSES: 1. Right closed intra-articular distal femur fracture. 2. Right closed extra-articular distal radius fracture. PROCEDURE PERFORMED: 1. Open reduction, internal fixation right closed intra-articular distal femur fracture. 2. Right closed reduction distal radius fracture with application of short-arm splint. SURGEON: Luiz Baxter M.D. DOCUMENT IMAGING SPECIALIST: Yony COELHO. ANESTHESIA: Spinal with sedation. ESTIMATED BLOOD LOSS: 50 mL. TOURNIQUET: None. DRAINS: None. COMPLICATIONS: None apparent. DISPOSITION: Postanesthesia care unit. INDICATIONS: Jenelle is a very pleasant 83-year-old female who fell at her home down some stairs on Tuesday evening. She was brought to [facility]. Workup including x-rays revealed a right closed displaced intra-articular distal femur fracture and a right closed mildly displaced extra-articular distal radius fracture. She was admitted to my partner's service. The patient and the family requested that I take care of her. I was notified Tuesday of this so yesterday morning. She is an independent ambulator. Recommendation was for open reduction, internal fixation of the distal femur fracture as well as a closed reduction of her distal radius fracture. The risks of procedure were discussed with Jenelle and her family in detail. These risks include, but not limited to risk of infection, nerve damage, bleeding, pain, and a small risk of deep vein thrombosis which could lead to fatal pulmonary embolism. Further risks include lack of healing of the fracture, failure of the hardware and deep infection. All of these complications could necessitate further operative treatment. All of Jenelle's and her family's questions were answered to her satisfaction. Appropriate informed consent was obtained. DESCRIPTION OF THE PROCEDURE: The patient identified in preop holding area. Surgical sites were marked by both the patient and myself. She was given 2 g of Ancef IV for prophylactic purposes. She was then transported to the operative suite. She was placed supine on the operative table. Spinal anesthetic was then administered and dosed per the anesthesia department without apparent complication. She was then placed supine on a radiolucent table. The right lower extremity was then prepped and draped in usual standard sterile fashion. Standard surgical pause undertaken to ensure that we were operating on the correct site and that appropriate preoperative antibiotics were given. All staff in the room were in agreement and we proceeded. The radiolucent triangle was brought in to flexed the knee approximately 40 degrees. This relaxed the gastrocnemius muscles and aided in reduction. Fluoroscopy was then brought in. The fracture was displaced. I then proceeded to azalea out the surgical incision with a marking pen. Starting at Gerdy's tubercle and extending proximally over the center of the lateral shaft of the femur, a lateral approach was then marked with a surgical pen. The incision was then made with a 15 blade scalpel. This was approximately 10-12 cm incision. Incision was then carried down sharply to the iliotibial band. The IT band was then incised centrally and split. This gave me excellent access to the distal femur as well as the distal femoral shaft. I then utilized a blunt instrument to aid in fracture reduction. The fracture was then reduced with traction. This was confirmed with fluoroscopic imaging. I then had the [employer] dental detail representative assemble a 6 hole right-sided 4.5 mm distal femoral condylar plate. This was an LC DCP plate. This was of the appropriate size. This was then placed in the anterior half of the of the distal femur and parallel to the anterior cortex of the distal femur. The placement of the plate was then provisionally held with K-wires and the placement of the plate on AP and lateral views was confirmed to be appropriate. I then proceeded with fixation. I started with the distal locking screws. These were 5.0 mm cannulated locking screws. I placed 4 into the distal femur. She did have an intra-articular split fracture. A small stab incision was made over the medial epicondyle. A large clamp was then utilized to reduce the intra-articular split as we placed the 5.0 mm bicortical locking screws. All the screws were placed with under fluoroscopic imaging to ensure that they were placed within the condyle and were indeed bicortical and they were. I then proceeded to utilize the push-pull mechanism to bring the femoral shaft to the plate. I then proceeded to place 3 5.0 mm bicortical locking screws through the most proximal aspect of the plate. This brought the bone flush with the plate and securely fix the plate to the bone. At this point in time, no further work was deemed necessary. The final fluoroscopic images were taken. The fracture was reduced very nicely. It was in good sagittal and coronal alignment. All screws were through the plate and were bicortically placed across the bone. All of the distal screws were also within the femoral condyle. Then the distal femur and locked securely into the plate. At this point in time, no further work was deemed necessary. The deep wound was then thoroughly irrigated with sterile saline solution with antibiotic added. The iliotibial band was then closed with interrupted #1 Vicryl suture. Subcutaneous tissue closed with 2-0 Vicryl interrupted suture. The skin was closed with stainless steel luanne. Sterile compressive dressing was then applied. The patient's right lower extremity was placed into a knee immobilizer. All sponge and needle counts were deemed correct prior to closure. The patient tolerated the procedure without apparent complication. I then proceeded to reduce the distal radius fracture. It was mildly displaced dorsally. With manual reduction technique, the distal radius fracture was reduced. It was then placed into a well-padded anterior posterior molded splint. At this point in time, no further work was deemed necessary. Jenelle was then transferred to the recovery room in stable condition. MMODL / IJN: [id number] /
[2018-12-12] MEDS: amLODIPine 5 MG TAB PO SCH (22:16)
[2018-12-12] MEDS: ASPIRIN 325 MG TAB PO SCH (22:16)
[2018-12-12] MEDS: SENNOSIDES-DOCUSATE SODIUM 1 EACH TAB PO SCH (22:16)
[2018-12-13] MEDS: LACTATED RINGERS 1,000 ML IV SCH ×2 (03:33→07:59)
--- NOTE | 2018-12-13 07:25 | FL ---
EXAMINATION TYPE: FL guidance operating room, XR femur RT DATE OF EXAM: 12/12/2018 CLINICAL HISTORY: Right distal femur fracture fixation TECHNIQUE: Fluoroscopy. COMPARISON: None. FINDINGS: Fluoroscopic guidance was provided during procedure performed by Dr. Baxter. A total of 1 minute and 36 seconds of fluoroscopic time was utilized during the procedure and 4 spot images was a cquired during a right femoral fracture fixation. IMPRESSION: As Above.
[2018-12-13 07:46] LABS: Basophils % (A) 0 %; Eosinophils % (A) 0 %; HCT 24.4 % (34.0-46.0); Lymphocytes # (A) 0.5 k/uL (1.0-4.8); Lymphocytes % (A) 6 %; MCH 30.9 pg (25.0-35.0); MCHC 32.4 g/dL (31.0-37.0); MCV 95.5 fL (80.0-100.0); Mean Platelet Volume 7.7; Monocytes # (A) 0.4 k/uL (0-1.0); Monocytes % (A) 5 %; Neutrophils # (A) 7.5 k/uL (1.3-7.7); Neutrophils % (A) 88 %; Platelet Count 201 k/uL (150-450); RBC 2.56 m/uL (3.80-5.40); RDW 14.3 % (11.5-15.5); WBC 8.6 k/uL (3.8-10.6)
[2018-12-13 07:51] LABS: HGB 7.9 gm/dL (11.4-16.0)
[2018-12-13] MEDS: PANTOPRAZOLE 40 MG TABLET PO SCH (08:27)
--- NOTE | 2018-12-13 09:00 | P.PN ---
Progress Note - Text Progress Note Date: 12/13/18 Postoperative day 1 status post ORIF right femur fracture under spinal anesthes ia, and intrathecal morphine given for postoperative analgesia, patient doing well, there is no anesthesia related complications, Patient had no headache, vital signs stable , Assessment and plan= postop day 1 , doing well there is no anesthesia related complication.
[2018-12-13] MEDS: ASPIRIN 325 MG TAB PO SCH ×2 (10:27→20:26)
[2018-12-13] MEDS: HYDROcodone/APAP 7.5-325MG 1 EACH TAB PO PRN (10:39)
[2018-12-13] MEDS: HEPARIN SODIUM,PORCINE 5,000 UNIT/ML 1 ML VIAL SQ SCH (10:46)
--- NOTE | 2018-12-13 12:38 | P.PN ---
Subjective 78-year-old female admitted for right wrist and femoral fracture patient will undergo surgical correction today patient is otherwise clinically doing well patient denied any symptoms of urinary tract infection doesn't have any dysuria patient uses an is abnormal but I do not believe patient has deteriorated is no fever or leukocytosis patient does have increased urinary frequency secondary to IV fluids. Antibiotics doesn't need to be continued but patient already received Bactrim which serves preoperative antibiotics. 12/13/2018 Patient is successful underwent the right hip surgery did not move her bowel yet did not pass gas yet patient was started on senna and as needed MiraLAX patient did take [place]. We'll also use tramadol for pain on as-needed basis Constitutional: Denied any fatigue denied any fever. Cardio vascular: denied any chest pain, palpitations Gastrointestinal denied any nausea vomiting Pulmonary: Denied any shortness of breath cough Neurologic denied any new focal deficits All inpatient medications were reviewed and appropriate changes in these medications as dictated in the interval history and assessment and plan. Objective - Vital Signs Vital signs: Vital Signs Temp 98.3 F 12/13/18 07:00 Pulse 78 12/13/18 07:00 Resp 16 12/13/18 10:00 BP 122/66 12/13/18 07:00 Pulse Ox 94 L 12/13/18 07:35 Intake & Output 12/12/18 12/13/18 12/13/18 18:59 06:59 18:59 Intake Total 1650 100 Output Total 175 100 Balance 1475 0 Weight 57.153 kg Intake: IV 1350 Intake, IV Titration 300 100 Amount Lactated Ringers 1,000 ml 50 @ 0 mls/hr IV .[facility] Rx#:[id number] Lactated Ringers 1,000 ml 300 @ 50 mls/hr IV .Q20H [facility] Rx#:[id number] ceFAZolin 2 gm In Sodium 50 Chloride 0.9% 50 ml @ 100 mls/hr IVPB Q8HR [facility] Rx# :[id number] Output: Urine 125 100 Estimated Blood Loss 50 Other: Voiding Method Bedpan Indwelling Catheter - Exam PHYSICAL EXAMINATION: GENERAL: The patient is alert and oriented x3, not in any acute distress. Well developed, well nourished. HEENT: Pupils are round and equally reacting to light. EOMI. No scleral icterus. No conjunctival pallor. Normocephalic, atraumatic. No pharyngeal erythema. No thyromegaly. CARDIOVASCULAR: S1 and S2 present. No murmurs, rubs, or gallops. PULMONARY: Chest is clear to auscultation, no wheezing or crackles. ABDOMEN: Soft, nontender, nondistended, normoactive bowel sounds. No palpable organomegaly. MUSCULOSKELETAL: Deferred to orthopedic surgery EXTREMITIES: No cyanosis, clubbing, or pedal edema. NEUROLOGICAL: Gross neurological examination did not reveal any focal deficits. SKIN: No rashes. - Labs CBC & Chem 7: 12/13/18 07:07 12/10/18 16:00 Labs: Abnormal Lab Results - Last 24 Hours (Table) 12/13/18 Range/Units 07:07 RBC 2.56 L (3.80-5.40) m/uL Hgb 7.9 L D (11.4-16.0) gm/dL Hct 24.4 L (34.0-46.0) % Lymphocytes # 0.5 L (1.0-4.8) k/uL Microbiology - Last 24 Hours (Table) 12/11/18 13:30 Urine Culture - Preliminary Urine,Voided Assessment and Plan Plan: -Right femoral fracture: Status post open reduction internal fixation of the distal femur and closed reduction of the distal radius. -Wrist fracture on the right side -Asymptomatic bacteriuria without any evidence of UTI, will not require any antibiotics -Hypertension I'll discuss my amlodipine to avoid perioperative hypotension -Severe gastric surgery reflux disease and patient is presently on Protonix which will be continued DVT prophylaxis as per primary service
[2018-12-13] MEDS: MULTIVITAMINS, THERA 1 EACH TAB PO SCH (12:43)
--- NOTE | 2018-12-13 14:35 | P.PN ---
Subjective Progress Note Date: 12/13/18 Principal diagnosis: S/P ORIF right distal femur fracture and closed reduction right wrist fracture Patient is seen at bedside this morning. She is postop day #1 from ORIF right distal femur fracture and closed reduction right wrist fracture. She has pain at the surgical site as expected but denies any new complaints. She denies numbness, tingling or calf pain. Review of systems is negative for fever, chills, chest pain, shortness of breath or other Objective - Vital Signs Vital signs: Vital Signs Temp 98.3 F 12/13/18 07:00 Pulse 79 12/13/18 12:45 Resp 16 12/13/18 14:00 BP 118/57 12/13/18 12:45 Pulse Ox 93 L 12/13/18 12:45 Intake & Output 12/12/18 12/13/18 12/13/18 18:59 06:59 18:59 Intake Total 1650 100 400 Output Total 175 100 Balance 1475 0 400 Weight 57.153 kg Intake: IV 1350 400 Lactated Ringers 1,000 ml 400 @ 50 mls/hr IV .Q20H [facility] Rx#:[id number] Intake, IV Titration 300 100 Amount Lactated Ringers 1,000 ml 50 @ 0 mls/hr IV .[facility] Rx#:[id number] Lactated Ringers 1,000 ml 300 @ 50 mls/hr IV .Q20H [facility] Rx#:[id number] ceFAZolin 2 gm In Sodium 50 Chloride 0.9% 50 ml @ 100 mls/hr IVPB Q8HR [facility] Rx# :[id number] Output: Urine 125 100 Estimated Blood Loss 50 Other: Voiding Method Bedpan Indwelling Catheter - Exam Inspection reveals a benign surgical wound. There is no active bleeding or drainage. Neurovascular status is intact throughout the lower extremity with motor and sensation fully intact. Calf is soft and nontender. 2+ dorsalis pedis pulse and less than 2 second cap refill is present. Splint in place to RUE. NVI - Constitutional General appearance: Present: no acute distress - Labs CBC & Chem 7: 12/13/18 07:07 12/10/18 16:00 Labs: Abnormal Lab Results - Last 24 Hours (Table) 12/13/18 Range/Units 07:07 RBC 2.56 L (3.80-5.40) m/uL Hgb 7.9 L D (11.4-16.0) gm/dL Hct 24.4 L (34.0-46.0) % Lymphocytes # 0.5 L (1.0-4.8) k/uL Microbiology - Last 24 Hours (Table) 12/11/18 13:30 Urine Culture - Preliminary Urine,Voided Assessment and Plan (1) Closed fracture of right distal femur Narrative/Plan: She will continue with routine postop orthopedic protocol including pain management, wound care, PT, DVT prophylaxis and medical management. Expect that she will transfer to rehab in next 1-2 days Current Visit: Yes Status: Acute Priority: Medium Code(s): S72.401A - UNSP FRACTURE OF LOWER END OF RIGHT FEMUR, INIT FOR CLOS FX SNOMED Code(s): 210980000 (2) Right wrist fracture Current Visit: Yes Status: Acute Priority: Medium Code(s): S62.101A - FRACTURE OF UNSP CARPAL BONE, RIGHT WRIST, INIT FOR CLOS FX SNOMED Code(s): 132023738 Time with Patient: Less than 30
--- NOTE | 2018-12-13 17:56 | P.PN ---
Subjective Progress Note Date: 12/13/18 Principal diagnosis: Right femur and right wrist fractures. A 53-year-old female patient, a primary of Dr. Francis, came into the ED after she fell at home and she sustained a fracture to her right wrist and femur. The patient stated that she missed a step as she was coming down the steps and she fell causing injury to herself. She is neurovascularly intact. Currently she is in bed resting comfortable. No issues with pain. The CAT scan of the brain showed cerebral atrophy. There was evidence of some left maxillary sinus disease. Spondylitic changes in the cervical spine without any fracture. X-ray of the knee was within normal limits. X-ray of the wrist showed a fracture in the radius and ulna which would acute and the patient is currently wearing a soft cast and render x-ray of the lower extremity showed an acute supracondylar fracture of the distal femur on the right. The patient was seen by Dr. Baxter and the patient will be taken to the operating room tomorrow. No chest pain. No shortness of breath. No altered mentation. There is a closed fracture of the right distal femur. She is hemodynamically stable at this point in time. The patient is seen today 12/12/2018 in follow-up on the regular medical floor. She is currently resting comfortably in bed. Awake and alert in no acute distress. No shortness of breath, cough or congestion. On room air. Her pain is currently well controlled. The plan is for surgical repair of the right femur fracture today and reduction of the right wrist fracture. She is on heparin for DVT prophylaxis. The patient is seen today 12/13/2018 in follow-up on the regular medical floor. He is currently sitting up in a chair at the bedside. Awake and alert in no acute distress. Maintaining good O2 saturations in the 90s on room air. She did undergo an open reduction internal fixation of the intra-articular distal femur fracture as well as a right closed extra-articular distal radius fracture. She had received intrathecal morphine for postoperative analgesia. She has lactated Ringer's at 50 MLS per hour. White count 8.6. Hemoglobin 7.9. She is working well with the incentive spirometer. Objective - Vital Signs Vital signs: Vital Signs Temp 98.4 F 12/13/18 15:00 Pulse 91 12/13/18 15:00 Resp 16 12/13/18 15:53 BP 123/57 12/13/18 15:00 Pulse Ox 93 L 12/13/18 15:00 Intake & Output 12/12/18 12/13/18 12/13/18 18:59 06:59 18:59 Intake Total 1650 100 400 Output Total 175 100 Balance 1475 0 400 Weight 57.153 kg Intake: IV 1350 400 Lactated Ringers 1,000 ml 400 @ 50 mls/hr IV .Q20H [facility] Rx#:[id number] Intake, IV Titration 300 100 Amount Lactated Ringers 1,000 ml 50 @ 0 mls/hr IV .[facility] Rx#:[id number] Lactated Ringers 1,000 ml 300 @ 50 mls/hr IV .Q20H [facility] Rx#:[id number] ceFAZolin 2 gm In Sodium 50 Chloride 0.9% 50 ml @ 100 mls/hr IVPB Q8HR [facility] Rx# :[id number] Output: Urine 125 100 Estimated Blood Loss 50 Other: Voiding Method Bedpan Indwelling Catheter - Exam The patient appeared well nourished and normally developed. No pulmonary issues. On room air. Head exam is unremarkable. No scleral icterus or corneal arcus noted. Neck is without jugular venous distension, thyromegaly, or carotid bruits. Carotid upstrokes are brisk bilaterally. Lungs are clear to auscultation and percussion. Cardiac exam reveals the PMI to be normally sized and situated. Rhythm is regular. First and second heart sounds normal. No murmurs, rubs or gallops. Abdominal exam reveals normal bowel sounds, no masses, no organomegaly and no aortic enlargement. Extremities The patient is wearing a splint to the right upper extremity. There is also a right long-leg splint in place. Pulses present. Neurologically the patient is awake and alert and there is no focal neurological deficit. - Labs CBC & Chem 7: 12/13/18 07:07 12/10/18 16:00 Labs: Abnormal Lab Results - Last 24 Hours (Table) 12/13/18 Range/Units 07:07 RBC 2.56 L (3.80-5.40) m/uL Hgb 7.9 L D (11.4-16.0) gm/dL Hct 24.4 L (34.0-46.0) % Lymphocytes # 0.5 L (1.0-4.8) k/uL Microbiology - Last 24 Hours (Table) 12/11/18 13:30 Urine Culture - Preliminary Urine,Voided Assessment and Plan Assessment: Impression: 1 fracture of the right femur. Status post open reduction, internal fixation right closed intra-articular distal femur fracture 2 right wrist fracture, status post right closed extra-articular distal radius fracture 3 fall 4 hypertension 5 osteoarthritis 6 acid reflux 7 remote history of kidney stones 8 elderly with a body mass index of 19.7 Plan: The patient was seen and evaluated by Dr. De La Cruz. No pulmonary issues. On room air. Currently up in the chair at the the bedside. She is working well with the incentive spirometer and cough and deep breathing exercises. We'll continue to follow and make further recommendations based on her clinical status. I, the cosigning physician, performed a history & physical examination of the patient. Lungs sounds are clear. Maintaining good O2 saturations in the 90s on room air. I discussed the assessment and plan of care with my nurse practitioner, Radha Jones. I attest to the above note as dictated by her.
[2018-12-13] MEDS: traMADol 50 MG TAB PO PRN (18:16)
[2018-12-13] MEDS: SENNOSIDES-DOCUSATE SODIUM 1 EACH TAB PO SCH (20:25)
[2018-12-13] MEDS: amLODIPine 5 MG TAB PO SCH (20:26)
[2018-12-14] MEDS: traMADol 50 MG TAB PO PRN ×2 (00:45→20:10)
[2018-12-14] MEDS: ASPIRIN 325 MG TAB PO SCH ×2 (10:45→20:09)
[2018-12-14] MEDS: MULTIVITAMINS, THERA 1 EACH TAB PO SCH (10:45)
[2018-12-14] MEDS: ONDANSETRON 4 MG/2 ML VIAL IVP PRN (10:46)
[2018-12-14] MEDS: PANTOPRAZOLE 40 MG TABLET PO SCH (10:46)
--- NOTE | 2018-12-14 12:05 | P.PN ---
Subjective Progress Note Date: 12/14/18 Principal diagnosis: S/P ORIF right distal femur fracture and closed reduction right wrist fracture Patient is seen at bedside this morning. She is postop day #2 from ORIF right distal femur fracture and closed reduction right wrist fracture. She has pain at the surgical site as expected but denies any new complaints. She denies numbness, tingling or calf pain. Review of systems is negative for fever, chills, chest pain, shortness of breath or other Objective - Vital Signs Vital signs: Vital Signs Temp 97.9 F 12/14/18 07:00 Pulse 81 12/14/18 07:00 Resp 12 12/14/18 07:00 BP 118/56 12/14/18 07:00 Pulse Ox 92 L 12/14/18 07:00 Intake & Output 12/13/18 12/14/18 12/14/18 18:59 06:59 18:59 Intake Total 400 850 Output Total 700 Balance 400 150 Intake: IV 400 Lactated Ringers 1,000 ml 400 @ 50 mls/hr IV .Q20H [facility] Rx#:[id number] Intake, IV Titration 600 Amount Lactated Ringers 1,000 ml 600 @ 50 mls/hr IV .Q20H [facility] Rx#:[id number] Oral 250 Output: Urine 700 Other: Voiding Method Indwelling Catheter Indwelling Catheter # Voids 1 - Exam Inspection reveals a benign surgical wound. There is no active bleeding or drainage. Neurovascular status is intact throughout the lower extremity with motor and sensation fully intact. Calf is soft and nontender. 2+ dorsalis pedis pulse and less than 2 second cap refill is present. Splint in place to RUE. NVI to all digits - Constitutional General appearance: Present: no acute distress - Labs CBC & Chem 7: 12/13/18 07:07 12/10/18 16:00 Labs: Microbiology - Last 24 Hours (Table) 12/11/18 13:30 Urine Culture - Final Urine,Voided Assessment and Plan (1) Closed fracture of right distal femur Narrative/Plan: She will continue with routine postop orthopedic protocol including pain management, wound care, PT, DVT prophylaxis and medical management. Expect that she will transfer to rehab tomorrow Current Visit: Yes Status: Acute Priority: Medium Code(s): S72.401A - UNSP FRACTURE OF LOWER END OF RIGHT FEMUR, INIT FOR CLOS FX SNOMED Code(s): 478539844 (2) Right wrist fracture Current Visit: Yes Status: Acute Priority: Medium Code(s): S62.101A - FR ACTURE OF UNSP CARPAL BONE, RIGHT WRIST, INIT FOR M/A-COM FX SNOMED Code(s): 627573183 Time with Patient: Less than 30
[2018-12-14] MEDS ORDERED: BISACODYL 5 MG TABLET.DR PO STA (12:51)
--- NOTE | 2018-12-14 13:17 | P.PN ---
Subjective 78-year-old female admitted for right wrist and femoral fracture patient will undergo surgical correction today patient is otherwise clinically doing well patient denied any symptoms of urinary tract infection doesn't have any dysuria patient uses an is abnormal but I do not believe patient has deteriorated is no fever or leukocytosis patient does have increased urinary frequency secondary to IV fluids. Antibiotics doesn't need to be continued but patient already received Bactrim which serves preoperative antibiotics. 12/13/2018 Patient is successful underwent the right hip surgery did not move her bowel yet did not pass gas yet patient was started on senna and as needed MiraLAX patient did take [place]. We'll also use tramadol for pain on as-needed basis 12/14/2018 Patient is a doing well pain is better controlled but the had nausea today patient is already on Protonix Zofran was added patient is expected to much better tomorrow patient is still constipated, we will use Dulcolax suppository Constitutional: Denied any fatigue denied any fever. Cardio vascular: denied any chest pain, palpitations Gastrointestinal denied any vomiting Pulmonary: Denied any shortness of breath cough Neurologic denied any new focal deficits All inpatient medications were reviewed and appropriate changes in these medications as dictated in the interval history and assessment and plan. Objective - Vital Signs Vital signs: Vital Signs Temp 97.9 F 12/14/18 07:00 Pulse 81 12/14/18 07:00 Resp 12 12/14/18 07:00 BP 118/56 12/14/18 07:00 Pulse Ox 92 L 12/14/18 07:00 Intake & Output 12/13/18 12/14/18 12/14/18 18:59 06:59 18:59 Intake Total 400 850 Output Total 700 Balance 400 150 Intake: IV 400 Lactated Ringers 1,000 ml 400 @ 50 mls/hr IV .Q20H [facility] Rx#:[id number] Intake, IV Titration 600 Amount Lactated Ringers 1,000 ml 600 @ 50 mls/hr IV .Q20H [facility] Rx#:[id number] Oral 250 Output: Urine 700 Other: Voiding Method Indwelling Catheter Indwelling Catheter # Voids 1 - Exam PHYSICAL EXAMINATION: GENERAL: The patient is alert and oriented x3, not in any acute distress. Well developed, well nourished. HEENT: Pupils are round and equally reacting to light. EOMI. No scleral icterus. No conjunctival pallor. Normocephalic, atraumatic. No pharyngeal erythema. No thyromegaly. CARDIOVASCULAR: S1 and S2 present. No murmurs, rubs, or gallops. PULMONARY: Chest is clear to auscultation, no wheezing or crackles. ABDOMEN: Soft, nontender, nondistended, normoactive bowel sounds. No palpable organomegaly. MUSCULOSKELETAL: Deferred to orthopedic surgery EXTREMITIES: No cyanosis, clubbing, or pedal edema. NEUROLOGICAL: Gross neurological examination did not reveal any focal deficits. SKIN: No rashes. - Labs CBC & Chem 7: 12/13/18 07:07 12/10/18 16:00 Labs: Microbiology - Last 24 Hours (Table) 12/11/18 13:30 Urine Culture - Final Urine,Voided Assessment and Plan Plan: -Right femoral fracture: Status post open reduction internal fixation of the distal femur and closed reduction of the distal radius. -Wrist fracture on the right side -Asymptomatic bacteriuria without any evidence of UTI, will not require any antibiotics -Hypertension I'll discuss my amlodipine to avoid perioperative hypotension -Severe gastric surgery reflux disease and patient is presently on Protonix which will be continued DVT prophylaxis as per primary service
[2018-12-14] MEDS: SENNOSIDES-DOCUSATE SODIUM 1 EACH TAB PO SCH (20:10)
[2018-12-14] MEDS: amLODIPine 5 MG TAB PO SCH (20:10)
[2018-12-14] MEDS: LACTATED RINGERS 1,000 ML IV SCH (20:12)
[2018-12-15 02:25] VITALS: RESP 18
[2018-12-15] MEDS: traMADol 50 MG TAB PO PRN ×2 (04:51→12:20)
[2018-12-15] MEDS: ASPIRIN 325 MG TAB PO SCH (08:26)
[2018-12-15] MEDS: MULTIVITAMINS, THERA 1 EACH TAB PO SCH (08:26)
[2018-12-15] MEDS: PANTOPRAZOLE 40 MG TABLET PO SCH (08:26)
--- NOTE | 2018-12-15 08:55 | P.DS ---
Providers Date of admission: 12/10/18 16:34 Expected date of discharge: 12/15/18 Attending physician: Luiz Baxter Consults: 12/10/18 16:34 Consult Physician Routine Consulting Provider: Donna Livingston Consult Reason/Comments: known Do you want consulting provider notified?: Yes Consult Physician Routine Consulting Provider: Jonh Rueda Consult Reason/Comments: medmgmnt Do you want consulting provider notified?: Yes 12/10/18 21:50 Consult Physician Routine Consulting Provider: Luiz Baxter Consult Reason/Comments: family requesting Do you want consulting provider notified?: Yes, Notify in am Primary care physician: Donna Livingston - Discharge Diagnosis(es) (1) Closed fracture of right distal femur Patient was admitted to the OR on 12/12/2018 to undergo ORIF of right distal femur fracture and closed reduction of right wrist fracture. She desired to proceed with elective surgery after given informed consent. She underwent the above procedure which she tolerated well without complication. Postoperative hospital course has remained without complication. On day of discharge she is afebrile, vital signs stable, labs within acceptable ranges, tolerating by mouth meds and diet, voiding without difficulty, positive flatus, denies abdominal pain or calf pain, pain is controlled on oral pain medication and has no new complaints. Wound is benign, neurovascular status is intact, calf is soft and nontender, abdomen soft and nontender. Review of systems is negative for numbness, tingling, fever, chills, chest pain, shortness of breath, nausea, vomiting, dizziness, headaches, slurred speech or other. She will need jodie out between post op days 10-14. She is to be non weightbearing to right lower extremity and right upper extremity. Current Visit: Yes Status: Acute Priority: Medium (2) Right wrist fracture Current Visit: Yes Status: Acute Priority: Medium Procedures: ORIF right distal femur fracture Closed reduction right wrist fracture Patient Condition at Discharge: Good Plan - Discharge Summary New Discharge Prescriptions: New Aspirin 325 mg PO BID #60 tab Docusate [Colace] 100 mg PO BID #60 capsule HYDROcodone/APAP 5-325MG [[place] 5-325] 1 tab PO Q4HR PRN #42 tab PRN Reason: Pain Ondansetron HCl [Zofran] 4 mg PO Q6HR PRN #20 tablet PRN Reason: Nausea No Action amLODIPine [Norvasc] 5 mg PO HS Omeprazole 20 mg PO DAILY Discharge Medication List Omeprazole 20 mg PO DAILY 12/10/18 [History] amLODIPine [Norvasc] 5 mg PO HS 12/10/18 [History] Aspirin 325 mg PO BID #60 tab 12/15/18 [Rx] Docusate [Colace] 100 mg PO BID #60 capsule 12/15/18 [Rx] HYDROcodone/APAP 5-325MG [[place] 5-325] 1 tab PO Q4HR PRN #42 tab 12/15/18 [Rx] Ondansetron HCl [Zofran] 4 mg PO Q6HR PRN #20 tablet 12/15/18 [Rx] Follow up Appointment(s)/Referral(s): Donna Livingston MD [Primary Care Provider] - 1-2 days Luiz Baxter MD [STAFF PHYSICIAN] - 10 Days Activity/Diet/Wound Care/Special Instructions: NON weight bearing RLE and RUE May shower after 3 days if no bleeding Jodie out 10-14 days post op F/U with Dr. Baxter in office Take meds as directed Discharge Disposition: TRANSFER TO SNF/ECF
[2018-12-15 09:33] LABS: Basophils % (A) 0 %; Eosinophils # (A) 0.2 k/uL (0-0.7); Eosinophils % (A) 3 %; HCT 25.1 % (34.0-46.0); HGB 8.4 gm/dL (11.4-16.0); Lymphocytes # (A) 1.6 k/uL (1.0-4.8); Lymphocytes % (A) 21 %; MCHC 33.3 g/dL (31.0-37.0); MCV 93.1 fL (80.0-100.0); Mean Platelet Volume 7.3; Monocytes # (A) 0.6 k/uL (0-1.0); Monocytes % (A) 8 %; Neutrophils % (A) 68 %; Platelet Count 281 k/uL (150-450); RBC 2.69 m/uL (3.80-5.40); RDW 14.4 % (11.5-15.5); WBC 7.5 k/uL (3.8-10.6)
[2018-12-15 10:35] VITALS: BP 128/59; PULSE 78; TEMP 98.1
--- NOTE | 2018-12-15 15:28 | P.PN ---
Subjective 78-year-old female admitted for right wrist and femoral fracture patient will undergo surgical correction today patient is otherwise clinically doing well patient denied any symptoms of urinary tract infection doesn't have any dysuria patient uses an is abnormal but I do not believe patient has deteriorated is no fever or leukocytosis patient does have increased urinary frequency secondary to IV fluids. Antibiotics doesn't need to be continued but patient already received Bactrim which serves preoperative antibiotics. 12/13/2018 Patient is successful underwent the right hip surgery did not move her bowel yet did not pass gas yet patient was started on senna and as needed MiraLAX patient did take [place]. We'll also use tramadol for pain on as-needed basis 12/14/2018 Patient is a doing well pain is better controlled but the had nausea today patient is already on Protonix Zofran was added patient is expected to much better tomorrow patient is still constipated, we will use Dulcolax suppository 12/15/2018 Patient is clinically doing well and can be discharged from medical perspective Constitutional: Denied any fatigue denied any fever. Cardio vascular: denied any chest pain, palpitations Gastrointestinal denied any vomiting Pulmonary: Denied any shortness of breath cough Neurologic denied any new focal deficits All inpatient medications were reviewed and appropriate changes in these medications as dictated in the interval history and assessment and plan. Objective - Vital Signs Vital signs: Vital Signs Temp 98.1 F 12/15/18 08:00 Pulse 78 12/15/18 08:00 Resp 18 12/15/18 08:00 BP 128/59 12/15/18 08:00 Pulse Ox 93 L 12/15/18 08:00 Intake & Output 12/14/18 12/15/18 12/15/18 18:59 06:59 18:59 Intake Total 250 Output Total 3550 450 Balance 250 -3550 -450 Weight 57.153 kg Intake: Oral 250 Output: Urine 3550 450 Uretheral (Matthew) 450 Other: Voiding Method Indwelling Catheter Indwelling Catheter # Voids 3 3 - Exam PHYSICAL EXAMINATION: GENERAL: The patient is alert and oriented x3, not in any acute distress. Well developed, well nourished. HEENT: Pupils are round and equally reacting to light. EOMI. No scleral icterus. No conjunctival pallor. Normocephalic, atraumatic. No pharyngeal erythema. No thyromegaly. CARDIOVASCULAR: S1 and S2 present. No murmurs, rubs, or gallops. PULMONARY: Chest is clear to auscultation, no wheezing or crackles. ABDOMEN: Soft, nontender, nondistended, normoactive bowel sounds. No palpable organomegaly. MUSCULOSKELETAL: Deferred to orthopedic surgery EXTREMITIES: No cyanosis, clubbing, or pedal edema. NEUROLOGICAL: Gross neurological examination did not reveal any focal deficits. SKIN: No rashes. - Labs CBC & Chem 7: 12/15/18 08:26 12/10/18 16:00 Labs: Abnormal Lab Results - Last 24 Hours (Table) 12/15/18 Range/Units 08:26 RBC 2.69 L (3.80-5.40) m/uL Hgb 8.4 L (11.4-16.0) gm/dL Hct 25.1 L (34.0-46.0) % Assessment and Plan Plan: -Right femoral fracture: Status post open reduction internal fixation of the distal femur and closed reduction of the distal radius. -Wrist fracture on the right side -Asymptomatic bacteriuria without any evidence of UTI, will not require any antibiotics -Hypertension patient was resumed on amlodipine with well-controlled blood pressure -Gastroesophageal reflux disease
== END 2018-12-15 12:25 | DRG 481 ==
LOC: EC 15:27 → 4SSUR 16:34
PROVIDERS: ADMIT Orthopaedic Surgery Sports Medicine; ATTEND Orthopaedic Surgery Sports Medicine
PROC: 0QSB04Z Reposition Right Lower Femur with Internal Fixation Device, Open Approach (ICD-10-PCS; principal; 2018-12-12 16:00)
PROC: 0PSHXZZ Reposition Right Radius, External Approach (ICD-10-PCS; principal; 2018-12-12 16:00)
DX: S72.91XA Unspecified fracture of right femur, initial encounter for closed fracture (principal); S52.501A Unspecified fracture of the lower end of right radius, initial encounter for closed fracture; E44.0 Moderate protein-calorie malnutrition; Z68.1 Body mass index [BMI] 19.9 or less, adult; I10 Essential (primary) hypertension; K21.9 Gastro-esophageal reflux disease without esophagitis; K59.00 Constipation, unspecified; M19.90 Unspecified osteoarthritis, unspecified site; W01.0XXA Fall on same level from slipping, tripping and stumbling without subsequent striking against object, initial encounter; Y92.009 Unspecified place in unspecified non-institutional (private) residence as the place of occurrence of the external cause; Z80.1 Family history of malignant neoplasm of trachea, bronchus and lung; Z87.442 Personal history of urinary calculi; Z90.710 Acquired absence of both cervix and uterus; Z88.0 Allergy status to penicillin; Z91.040 Latex allergy status
CPT/HCPCS: 36415; 70450; 71045; 72125; 80053; 80320; 81001; 84484; 85025; 85610; 85730; 86850; 86900; 86901; 87086; 93005; 94760; 96361; 96374; 99285

== ENCOUNTER → 2020-03-20 | Outpatient (CLI) | payer MEDICARE, BC ==
[2020-03-20 10:49] LABS: Basophils # (A) 0.1 k/uL (0-0.2); Basophils % (A) 1 %; Eosinophils # (A) 0.1 k/uL (0-0.7); Eosinophils % (A) 1 %; HCT 39.4 % (34.0-46.0); HGB 12.5 gm/dL (11.4-16.0); Lymphocytes # (A) 2.4 k/uL (1.0-4.8); Lymphocytes % (A) 30 %; MCH 30.5 pg (25.0-35.0); MCHC 31.6 g/dL (31.0-37.0); MCV 96.4 fL (80.0-100.0); Mean Platelet Volume 6.9; Monocytes # (A) 0.5 k/uL (0-1.0); Monocytes % (A) 7 %; Neutrophils # (A) 4.9 k/uL (1.3-7.7); Neutrophils % (A) 60 %; Platelet Count 249 k/uL (150-450); RBC 4.09 m/uL (3.80-5.40); RDW 13.9 % (11.5-15.5); WBC 8.1 k/uL (3.8-10.6)
[2020-03-20 15:15] LABS: African American GFR (CKD) 59.1 (60.0-200.0); Albumin 4.1 g/dL (3.80-4.90); Albumin/Globulin Ratio 1.64 (1.60-3.17); Anion Gap 7.6 mmol/L (4.00-12.00); Calcium 9.9 mg/dL (8.7-10.3); Carbon Dioxide 28.4 mmol/L (21.6-31.8); Chol/HDL Ratio 2.62; Globulin 2.5 g/dL (1.6-3.3); LDL Cholesterol,Calculated 133.8 mg/dL (0.0-131.0); Potassium 4.2 mmol/L (3.5-5.5); Total Bilirubin 0.5 mg/dL (0.2-1.2); Total Protein 6.6 g/dL (6.2-8.2); VLDL Calculation 17.2 mg/dL (5.00-40.00)
== END | disposition home or self-care (01) ==
LOC: LABWHC1 09:59
PROVIDERS: ATTEND Internal Medicine
DX: E78.5 Hyperlipidemia, unspecified (principal); I10 Essential (primary) hypertension
CPT/HCPCS: 36415; 80053; 80061; 84439; 84443; 85025

== ENCOUNTER → 2021-04-03 | Outpatient (CLI) | payer MEDICARE ==
[2021-04-03 15:24] LABS: Basophils # (A) 0.04 X 10*3/uL (0.00-0.10); Basophils % (A) 0.4 %; HCT 40.9 % (37.2-46.3); HGB 12.8 g/dL (12.0-15.0); Lymphocytes # (A) 1.66 X 10*3/uL (0.90-5.00); Lymphocytes % (A) 16.7 %; MCH 30.4 pg (27.0-32.0); MCHC 31.3 g/dL (32.0-37.0); MCV 97.1 fL (80.0-97.0); Monocytes # (A) 1.03 X 10*3/uL (0.20-1.00); Monocytes % (A) 10.4 %; Neutrophils # (A) 7.04 X 10*3/uL (1.80-7.70); Neutrophils % (A) 70.7 %; Platelet Count 255 X 10*3/uL (140-440); RBC 4.21 X 10*6/uL (4.10-5.20); RDW 14.2 % (11.5-14.5); WBC 9.95 X 10*3/uL (4.50-10.00)
[2021-04-03 16:39] LABS: ALT 16 U/L (8-44); AST 16 U/L (13-35); African American GFR (CKD) 66.6 (60.0-200.0); Albumin 4.2 g/dL (3.8-4.9); Albumin/Globulin Ratio 1.62 (1.60-3.17); Alkaline Phosphatase 86 U/L (41-126); BUN/Creat Ratio 27.56 Ratio (12.00-20.00); Blood Urea Nitrogen 24.8 mg/dL (9.0-27.0); Calcium 9.4 mg/dL (8.7-10.3); Carbon Dioxide 21.1 mmol/L (20.0-27.5); Chloride 105 mmol/L (96-109); Chol/HDL Ratio 2.23 Ratio; Globulin 2.6 g/dL (1.6-3.3); Glucose 93 mg/dL (70-110); LDL Cholesterol,Calculated 124.1 mg/dL (0.0-131.0); Non-African American GFR(CKD) 57.5 (60.0-200.0); Potassium 4.1 mmol/L (3.5-5.5); Sodium 140 mmol/L (135-145); Total Protein 6.8 g/dL (6.2-8.2); VLDL Calculation 15.92 mg/dL (5.00-40.00)
== END | disposition home or self-care (01) ==
LOC: LABWHC1 09:49
PROVIDERS: ATTEND Internal Medicine
DX: I10 Essential (primary) hypertension (principal); E78.00 Pure hypercholesterolemia, unspecified; K21.9 Gastro-esophageal reflux disease without esophagitis; J30.2 Other seasonal allergic rhinitis; F41.1 Generalized anxiety disorder
CPT/HCPCS: 36415; 80053; 80061; 84439; 84443; 84481; 85025

== ENCOUNTER 2022-12-02 17:54 | Observation (INO) | payer MEDICARE ==
--- NOTE | 2022-12-02 18:50 | ED ---
General Adult HPI <Linda Durand - Last Filed: 12/02/22 18:43> <Renée Davila - Last Filed: 12/02/22 23:38> - General Stated complaint: Poss blood clot - History of Present Illness Initial comments: 87 year old female presents to the emergency department for evaluation for elevated d-dimer. She reports shortness of breath when she walks long distances. Denies shortness of breath at rest. She states that she saw her catering server today and had blood work drawn and she had an elevated d-dimer. She was going to have a CTA but reports that her kidney function was too poor for contrast. (Linda Durand) Jenelle is a very pleasant 87-year-old female who follows with Dr. Livingston pulmonology she reported to him today that she has been having worsening exertional dyspnea over the past few months. She states she becomes very dyspneic and tired after walking a flight of stairs. He checked outpatient labs and noted that her d-dimer was elevated he recommended a CTA however she had a low GFR was told to come to the hospital for hydration. Patient denies any significant chest pain she did have a distant history of angina. She has no known history of CHF. It is also noted that her EKG done at Dr. Livingston's office had a possible arrh ythmia. (Renée Davila) - Related Data Home Medications Medication Instructions Recorded Confirmed amLODIPine [Norvasc] 5 mg PO DAILY 12/10/18 12/02/22 Metoprolol Tartrate [Lopressor] 12.5 mg PO DAILY 12/02/22 12/02/22 Pantoprazole [Protonix] 40 mg PO AC-BRKFST 12/02/22 12/02/22 amLODIPine [Norvasc] 5 mg PO HS PRN 12/02/22 12/02/22 Allergies Allergy/AdvReac Type Severity Reaction Status Date / Time Penicillins Allergy Unknown Verified 12/02/22 22:54 latex AdvReac Itching Verified 12/02/22 22:54 Review of Systems ROS Other: All systems not noted in ROS Statement are negative. <Linda Durand - Last Filed: 12/02/22 18:43> ROS Other: All systems not noted in ROS Statement are negative. <Renée Davila - Last Filed: 12/02/22 23:38> ROS Statement: Those systems with pertinent positive or pertinent negative responses have been documented in the HPI. Past Medical History Past Medical History: GERD/Reflux, Hypertension History of Any Multi-Drug Resistant Organisms: None Reported Past Surgical History: Hysterectomy, Orthopedic Surgery Additional Past Surgical History / Comment(s): back surgery, kindey stones- surgery to remove stones, left shoulder- plate Past Anesthesia/Blood Transfusion Reactions: Postoperative Nausea & Vomiting (PONV) Past Psychological History: No Psychological Hx Reported Past Alcohol Use History: None Reported Past Drug Use History: None Reported - Past Family History Father Family Medical History: Cancer Additional Family Medical History / Comment(s): lung cancer- age 62 <Linda Durand - Last Filed: 12/02/22 18:43> General Exam <Linda Durand - Last Filed: 12/02/22 18:43> <Renée Davila - Last Filed: 12/02/22 23:38> - General Exam Comments Initial Comments: Visual Physical Exam Vital signs reviewed General: Well-appearing, nontoxic, no acute distress. Head: Normocephalic, atraumatic Eyes: PERRLA, EOMI ENT: Airway patent Chest: Nonlabored breathing Skin: No visual rash, normal skin tone Neuro: Alert and oriented 3 Musculoskeletal: No gross abnormalities (Linda Durand) Physical Exam GENERAL: Patient is well-developed and well-nourished. Patient is nontoxic and well- hydrated and is in no distress. HENT: Normocephalic, Atraumatic. EYES: PERRL, EOMI PULMONARY: Unlabored respirations. No audible rales rhonchi or wheezing was noted. CARDIOVASCULAR: There is a regular rate and rhythm without any murmurs gallops or rubs. ABDOMEN: Soft and nontender with normal bowel sounds. SKIN: Skin is clear with no lesions or rashes and otherwise unremarkable. : Deferred NEUROLOGIC: Patient is alert and oriented x3. Moving all extremities spontaneously MUSCULOSKELETAL: Normal extremities with adequate strength and full range of motion. No lower extremity swelling or edema. No calf tenderness. PSYCHIATRIC: Normal psychiatric evaluation. (Renée Davila) Course Vital Signs 12/02/22 12/02/22 12/02/22 18:42 19:28 19:29 Temperature 97.7 F 97.7 F Pulse Rate 84 77 Respiratory 18 16 18 Rate Blood Pressure 177/87 174/95 O2 Sat by Pulse 96 99 Oximetry 12/02/22 12/02/22 12/02/22 20:17 20:28 21:25 Temperature 97.6 F 97.5 F L Pulse Rate 79 73 67 Respiratory 17 17 18 Rate Blood Pressure 154/85 169/82 O2 Sat by Pulse 100 100 Oximetry 12/02/22 12/02/22 22:20 23:13 Temperature 97.5 F L Pulse Rate 70 81 Respiratory 17 16 Rate Blood Pressure 162/82 144/83 O2 Sat by Pulse 99 96 Oximetry EKG Findings - EKG Comments: EKG Findings:: Appears to be atrial flutter EKG obtained due to complaint of shortness of breath EKG was obtained at 1901 rate is 75 rhythm with a narrow complex irregularly irregular rhythm appears to be atrial flutter with a 4-1 block. There are no acute ST elevations or depressions there is no acute ischemia or infarction. <Renée Davila - Last Filed: 12/02/22 23:38> Medical Decision Making <Linda Durand - Last Filed: 12/02/22 18:43> - Lab Data Result diagrams: 12/02/22 19:30 12/02/22 19:30 <Renée Davila - Last Filed: 12/02/22 23:38> - Medical Decision Making I preformed the quick note portion of this chart. Electronically signed by Linda Durand PA-C (Linda Durand) - Lab Data Lab Results 12/02/22 12/02/22 12/02/22 Range/Units 19:30 19:30 19:30 WBC 6.1 (3.8-10.6) k/uL RBC 4.37 (3.80-5.40) m/uL Hgb 13.5 (11.4-16.0) gm/dL Hct 41.0 (34.0-46.0) % MCV 93.9 (80.0-100.0) fL MCH 30.9 (25.0-35.0) pg MCHC 32.9 (31.0-37.0) g/dL RDW 14.0 (11.5-15.5) % Plt Count 209 (150-450) k/uL MPV 7.4 Neutrophils % 58 % Lymphocytes % 31 % Monocytes % 6 % Eosinophils % 3 % Basophils % 0 % Neutrophils # 3.5 (1.3-7.7) k/uL Lymphocytes # 1.9 (1.0-4.8) k/uL Monocytes # 0.4 (0-1.0) k/uL Eosinophils # 0.2 (0-0.7) k/uL Basophils # 0.0 (0-0.2) k/uL PT (9.0-12.0) sec INR (<1.2) APTT (22.0-30.0) sec Sodium 140 (137-145) mmol/L Potassium 4.3 (3.5-5.1) mmol/L Chloride 109 H (98-107) mmol/L Carbon Dioxide 23 (22-30) mmol/L Anion Gap 8 mmol/L BUN 29 H (7-17) mg/dL Creatinine 1.08 H (0.52-1.04) mg/dL Est GFR (CKD-EPI)AfAm 53 (>60 ml/min/1.73 sqM) Est GFR (CKD-EPI)NonAf 46 (>60 ml/min/1.73 sqM) Glucose 89 (74-99) mg/dL Calcium 9.4 (8.4-10.2) mg/dL Total Bilirubin 0.6 (0.2-1.3) mg/dL AST 27 (14-36) U/L ALT 17 (4-34) U/L Alkaline Phosphatase 85 (38-126) U/L Troponin I <0.012 (0.000-0.034) ng/mL NT-Pro-B Natriuret Pep 927 pg/mL Total Protein 7.6 (6.3-8.2) g/dL Albumin 4.2 (3.5-5.0) g/dL 12/02/22 Range/Units 19:30 WBC (3.8-10.6) k/uL RBC (3.80-5.40) m/uL Hgb (11.4-16.0) gm/dL Hct (34.0-46.0) % MCV (80.0-100.0) fL MCH (25.0-35.0) pg MCHC (31.0-37.0) g/dL RDW (11.5-15.5) % Plt Count (150-450) k/uL MPV Neutrophils % % Lymphocytes % % Monocytes % % Eosinophils % % Basophils % % Neutrophils # (1.3-7.7) k/uL Lymphocytes # (1.0-4.8) k/uL Monocytes # (0-1.0) k/uL Eosinophils # (0-0.7) k/uL Basophils # (0-0.2) k/uL PT 10.0 (9.0-12.0) sec INR 0.9 (<1.2) APTT 22.6 (22.0-30.0) sec Sodium (137-145) mmol/L Potassium (3.5-5.1) mmol/L Chloride (98-107) mmol/L Carbon Dioxide (22-30) mmol/L Anion Gap mmol/L BUN (7-17) mg/dL Creatinine (0.52-1.04) mg/dL Est GFR (CKD-EPI)AfAm (>60 ml/min/1.73 sqM) Est GFR (CKD-EPI)NonAf (>60 ml/min/1.73 sqM) Glucose (74-99) mg/dL Calcium (8.4-10.2) mg/dL Total Bilirubin (0.2-1.3) mg/dL AST (14-36) U/L ALT (4-34) U/L Alkaline Phosphatase (38-126) U/L Troponin I (0.000-0.034) ng/mL NT-Pro-B Natriuret Pep pg/mL Total Protein (6.3-8.2) g/dL Albumin (3.5-5.0) g/dL Disposition <Linda Durand - Last Filed: 12/02/22 18:43> <Renée Davila - Last Filed: 12/02/22 23:38> Clinical Impression: Exertional dyspnea, Abnormal EKG Disposition: ADMITTED IP TO THIS [facility] Condition: Serious
[2022-12-02] MEDS ORDERED: SODIUM CHLORIDE 0.9% 1,000 ML IV STA (19:05)
[2022-12-02 20:14] LABS: Basophils % (A) 0 %; Eosinophils # (A) 0.2 k/uL (0-0.7); Eosinophils % (A) 3 %; HGB 13.5 gm/dL (11.4-16.0); Lymphocytes # (A) 1.9 k/uL (1.0-4.8); Lymphocytes % (A) 31 %; MCH 30.9 pg (25.0-35.0); MCHC 32.9 g/dL (31.0-37.0); MCV 93.9 fL (80.0-100.0); Mean Platelet Volume 7.4; Monocytes # (A) 0.4 k/uL (0-1.0); Monocytes % (A) 6 %; Neutrophils # (A) 3.5 k/uL (1.3-7.7); Neutrophils % (A) 58 %; Platelet Count 209 k/uL (150-450); RBC 4.37 m/uL (3.80-5.40); WBC 6.1 k/uL (3.8-10.6)
[2022-12-02 20:24] LABS: INR 0.9 (<1.2)
[2022-12-02 20:25] LABS: Partial Thromboplastin Time 22.6 sec (22.0-30.0)
[2022-12-02 20:27] LABS: ALT 17 U/L (4-34); AST 27 U/L (14-36); African American GFR (CKD) 53 (>60 ml/min/1.73 sqM); Albumin 4.2 g/dL (3.5-5.0); Alkaline Phosphatase 85 U/L (38-126); Anion Gap 8 mmol/L; Blood Urea Nitrogen 29 mg/dL (7-17); Calcium 9.4 mg/dL (8.4-10.2); Carbon Dioxide 23 mmol/L (22-30); Chloride 109 mmol/L (98-107); Glucose 89 mg/dL (74-99); Non-African American GFR(CKD) 46 (>60 ml/min/1.73 sqM); Potassium 4.3 mmol/L (3.5-5.1); Sodium 140 mmol/L (137-145); Total Bilirubin 0.6 mg/dL (0.2-1.3); Total Protein 7.6 g/dL (6.3-8.2)
[2022-12-02 20:34] LABS: NT-Pro-B-Type Natriuretic Pept 927 pg/mL
--- NOTE | 2022-12-02 22:24 | CT ---
EXAM: CT Angiography Chest With Intravenous Contrast CLINICAL HISTORY: ITS.REASON CT Reason: dyspnea TECHNIQUE: Axial computed tomographic angiography images of the chest with intravenous contrast. CTDI is 5.1 mGy and DLP is 216.7 mGy-cm. This CT exam was performed using one or more of the following dose reduction techniques: automated exposure control, adjustment of the mA and/or kV according to patient size, and/or use of iterative reconstruction technique. MIP reconstructed images were created and reviewed. COMPARISON: No relevant prior studies available. FINDINGS: Pulmonary arteries: Adequate pulmonary artery opacification. Normal caliber main pulmonary artery. No evidence of acute pulmonary embolism. Aorta: Thoracic aortic atherosclerosis without aneurysm. Lungs: Subsegmental atelectasis at the lung bases. No consolidation or mass. Pleural space: Unremarkable. No pleural effusion or pneumothorax. Heart: Borderline heart size. Mild coronary artery atherosclerosis. No pericardial effusion. No RV strain. Thyroid: Unremarkable thyroid gland. Bones/joints: No acute fracture or dislocation. Soft tissues: Unremarkable. Lymph nodes: Unremarkable. No adenopathy. Kidneys and ureters: Obstructing 2 mm left kidney stone. Left kidney extrarenal pelvis. IMPRESSION: No evidence of acute pulmonary embolism.
[2022-12-02] MEDS ORDERED: NALOXONE 0.4 MG/ML 1 ML VIAL IV PRN (22:36)
[2022-12-03] MEDS ORDERED: amLODIPine 5 MG TAB PO PRN (09:55)
--- NOTE | 2022-12-03 10:07 | P.CRDCN ---
History of Present Illness History of present illness: HISTORY OF PRESENT ILLNESS: This is a 87-year-old female with a past medical history significant for hypertension, PACs, PVCs, LVH, and mild pulmonary hypertension. Patient follows in the office with Dr. Moody. We have been asked to see the patient in consultation for exertional dyspnea. Patient examined at the bedside. Patient states she was at an appointment with Dr. Livingston yesterday for evaluation and she has been feeling short of breath for the past 3-4 months. She states that she has a 2 story house and she has been getting short of breath when she is walking up the stairs which is unusual for her. She does report feeling her heart fluttering from time to time. She denies having any chest pain or pressure. She does report she is also beginning headaches recently. She denies any nausea or vomiting. Denies any dizziness or lightheadedness. Dr. Livingston obtained an EKG and lab work and the patient was sent home. She was called later and told that her d-dimer is elevated and was instructed to come to the emergency room for further evaluation. Patient underwent a chest CT which was negative for pulmonary embolism. Patient's initial EKG when she arrived to the hospital appears to be atrial flutter. The patient does not have a history of atrial flutter. However there has been no episodes of atrial flutter noted on telemetry. Her EKG from Dr. Francis's office and subsequent EKG performed in the emergency room reveals sinus mechanism with PACs and PVCs. * Laboratory data: WBC 6.1. Hemoglobin 13.5. Platelet count 209. Sodium 140. Potassium 4.3. BUN 29. Creatinine 1.08. Troponin negative 1. ProBNP 927. * Current home cardiac medications include metoprolol tartrate 12.5 mg daily and Norvasc 5 mg daily * Most recent echocardiogram obtained in September 2021 revealed ejection fraction 55% with severe LVH, mild MR, mild TR REVIEW OF SYSTEMS: At the time of my exam: CONSTITUTIONAL: Denies fever or chills. HEENT: Denies blurred vision, vision changes, or eye pain. Denies hemoptysis CARDIOVASCULAR: Denies chest pain. Denies orthopnea. Denies PND. Denies palpitations RESPIRATORY: Denies shortness of breath. GASTROINTESTINAL: Denies abdominal pain. Denies nausea or vomiting. HEMATOLOGIC: Denies bleeding disorders. GENITOURINARY: Denies any blood in urine. SKIN: Denies pruitis. Denies rash. PHYSICAL EXAM: VITAL SIGNS: Reviewed. GENERAL: Well-developed in no acute distress. HEENT: Head is normocephalic. Pupils are equal, round. Sclerae anicteric. Mucous membranes of the mouth are moist. Neck supple. No JVD or thyromegaly LUNGS: Respirations even and unlabored. Lungs essentially clear to auscultation bilaterally. HEART: Regular rate and rhythm. S1 and S2 heard. Systolic murmur noted. ABDOMEN: Soft. Nondistended. Nontender. EXTREMITIES: Normal range of motion. No clubbing or cyanosis. Peripheral pulses intact. No lower extremity edema NEUROLOGIC: Awake and alert. Oriented x 3. ASSESSMENT: Exertional dyspnea 3-4 months Possible new onset atrial flutter, noted on one EKG, however no episodes of atrial flutter noted on telemetry History of PACs and PVCs Hypertension Hyperlipidemia, intolerant to statin therapy Severe LVH Mild pulmonary hypertension PLAN: Obtain 2-D echo to assess cardiac structure and function Resume home cardiac medications Continue telemetry monitoring Patient will obtain a 30 day event monitor post discharge from the cardiology office to assess for atrial flutter/fibrillation Patient may be discharged home this afternoon from a cardiac standpoint Nurse practitioner note has been reviewed by physician. Signing provider agrees with the documented findings, assessment, and plan of care. Past Medical History Past Medical History: GERD/Reflux, Hypertension History of Any Multi-Drug Resistant Organisms: None Reported Date of last positivie culture/infection: 1972 MDRO Source:: perineal Past Surgical History: Hysterectomy, Orthopedic Surgery Additional Past Surgical History / Comment(s): back surgery, kindey stones- surgery to remove stones, left shoulder- plate Past Anesthesia/Blood Transfusion Reactions: Postoperative Nausea & Vomiting (PONV) Past Psychological History: No Psychological Hx Reported Past Alcohol Use History: None Reported Past Drug Use History: None Reported - Past Family History Father Family Medical History: Cancer Additional Family Medical History / Comment(s): lung cancer- age 62 Medications and Allergies Home Medications Medication Instructions Recorded Confirmed Type amLODIPine [Norvasc] 5 mg PO DAILY 12/10/18 12/02/22 History Metoprolol Tartrate [Lopressor] 12.5 mg PO DAILY 12/02/22 12/02/22 History Pantoprazole [Protonix] 40 mg PO AC-BRKFST 12/02/22 12/02/22 History amLODIPine [Norvasc] 5 mg PO HS PRN 12/02/22 12/02/22 History Allergies Allergy/AdvReac Type Severity Reaction Status Date / Time Penicillins Allergy Unknown Verified 12/02/22 22:54 latex AdvReac Itching Verified 12/02/22 22:54 Physical Exam Vitals: Vital Signs Temp Pulse Resp BP Pulse Ox 12/03/22 07:35 83 16 168/58 97 12/03/22 06:00 78 18 138/71 12/03/22 04:00 58 L 20 156/85 12/03/22 03:23 61 12/03/22 02:43 61 14 156/85 12/03/22 02:00 68 20 138/124 12/03/22 00:00 67 16 144/83 12/02/22 23:13 81 16 144/83 96 12/02/22 22:20 97.5 F L 70 17 162/82 99 12/02/22 22:00 169/82 12/02/22 21:25 97.5 F L 67 18 169/82 100 12/02/22 20:28 97.6 F 73 17 154/85 100 12/02/22 20:17 79 17 12/02/22 20:00 96 22 174/95 12/02/22 19:29 18 12/02/22 19:28 97.7 F 77 16 174/95 99 12/02/22 19:08 96 14 12/02/22 18:42 97.7 F 84 18 177/87 96 Intake and Output 12/02/22 12/03/22 12/03/22 22:59 06:59 14:59 Other: Weight 55.338 kg Results 12/02/22 19:30 12/02/22 19:30 Cardiac Enzymes 12/02/22 12/02/22 Range/Units 19:30 19:30 AST 27 (14-36) U/L Troponin I <0.012 (0.000-0.034) ng/mL Coagulation 12/02/22 Range/Units 19:30 PT 10.0 (9.0-12.0) sec APTT 22.6 (22.0-30.0) sec CBC 12/02/22 Range/Units 19:30 WBC 6.1 (3.8-10.6) k/uL RBC 4.37 (3.80-5.40) m/uL Hgb 13.5 (11.4-16.0) gm/dL Hct 41.0 (34.0-46.0) % Plt Count 209 (150-450) k/uL Comprehensive Metabolic Panel 12/02/22 Range/Units 19:30 Sodium 140 (137-145) mmol/L Potassium 4.3 (3.5-5.1) mmol/L Chloride 109 H (98-107) mmol/L Carbon Dioxide 23 (22-30) mmol/L BUN 29 H (7-17) mg/dL Creatinine 1.08 H (0.52-1.04) mg/dL Glucose 89 (74-99) mg/dL Calcium 9.4 (8.4-10.2) mg/dL AST 27 (14-36) U/L ALT 17 (4-34) U/L Alkaline Phosphatase 85 (38-126) U/L Total Protein 7.6 (6.3-8.2) g/dL Albumin 4.2 (3.5-5.0) g/dL Current Medications Generic Name Dose Route Start Last Admin Trade Name Freq PRN Reason Stop Dose Admin Naloxone HCl 0.2 mg 12/02/22 22:36 Naloxone 0.4 Mg/Ml 1 Ml Vial IV Q2M PRN Opioid Reversal Intake and Output 12/02/22 12/03/22 12/03/22 22:59 06:59 14:59 Other: Weight 55.338 kg 12/02/22 19:30 12/02/22 19:30
[2022-12-03] MEDS: METOPROLOL TARTRATE 12.5 MG TAB PO SCH (10:40)
[2022-12-03] MEDS: amLODIPine 5 MG TAB PO SCH (10:40)
--- NOTE | 2022-12-03 14:38 | P.CNPUL ---
History of Present Illness Consult date: 12/03/22 Reason for consult: dyspnea History of present illness: 87-year-old female patient was brought into the emergency room because of shortness of breath. She was having some palpitations. She was seen in our office and the patient was found to have frequent PACs and PVCs. The patient was referred for a CT angiogram and this was completed and showed no acute abnormalities. No evidence of any pulmonary embolism. No evidence of any pneumonia. This some chronic bibasilar scarring in the lung bases bilaterally as the patient has some limited bibasilar pulmonary fibrosis. In the emergency, a 12-lead EKG was done and the patient was found to have a flutter and the patient was having episodes of palpitations upon specially with exertion and walking. Her current rhythm is back into sinus and the patient is having frequent PACs and PVCs. The patient has no cough or sputum production. No chest tightness. No wheezing. Previous echocardiogram from October 2021 showed a preserved LV function, hypertensive heart disease with severe LVH, mild MR, mild TR. Her troponin was negative. Her proBNP level was 927. Creatinine is at 1.08. Sodium is at 140. White cell count at 6.1. No syncope. No history of hyperthyroidism. No history of any chronic lung disease and the patient is known to have some limited bibasilar pulmonary fibrosis. The patient is currently doing well. She is hemodynamically stable. Awaiting a repeat echocardiogram. Room air pulse ox is 97%. Review of Systems Constitutional: Denies chills, Denies fever Eyes: denies as per HPI, denies blurred vision, denies bulging eye, denies decreased vision, denies diplopia, denies discharge, denies dry eye, denies irritation, denies itching, denies pain, denies photophobia, denies loss of peripheral vision, denies loss of vision, denies tunnel vision/blind spots Ears: deny: decreased hearing, ear discharge, earache, tinnitus Ears, nose, mouth and throat: Reports as per HPI Breasts: absent: as per HPI, change in shape, gynecomastia, masses, nipple discharge, pain, skin changes, swelling Cardiovascular: Reports irregular heart beat, Reports lightheadedness Respiratory: Reports dyspnea Gastrointestinal: Reports as per HPI Genitourinary: Reports as per HPI Menstruation: Reports as per HPI Musculoskeletal: Reports as per HPI Musculoskeletal: absent: ankle pain, ankle stiffness, ankle swelling Integumentary: Reports as per HPI Neurological: Reports as per HPI Psychiatric: Reports as per HPI Endocrine: Reports as per HPI Hematologic/Lymphatic: Reports as per HPI Allergic/Immunologic: Reports as per HPI Past Medical History Past Medical History: GERD/Reflux, Hypertension Additional Past Medical History / Comment(s): Pulmonary fibrosis involving the lung bases, chronic History of Any Multi-Drug Resistant Organisms: None Reported Date of last positivie culture/infection: 1972 MDRO Source:: perineal Past Surgical History: Hysterectomy, Orthopedic Surgery Additional Past Surgical History / Comment(s): back surgery, kindey stones- surgery to remove stones, left shoulder- plate Past Anesthesia/Blood Transfusion Reactions: Postoperative Nausea & Vomiting (PONV) Past Psychological History: No Psychological Hx Reported Past Alcohol Use History: None Reported Past Drug Use History: None Reported - Past Family History Father Family Medical History: Cancer Additional Family Medical History / Comment(s): lung cancer- age 62 Medications and Allergies Home Medications Medication Instructions Recorded Confirmed Type amLODIPine [Norvasc] 5 mg PO DAILY 12/10/18 12/02/22 History Metoprolol Tartrate [Lopressor] 12.5 mg PO DAILY 12/02/22 12/02/22 History Pantoprazole [Protonix] 40 mg PO AC-BRKFST 12/02/22 12/02/22 History amLODIPine [Norvasc] 5 mg PO HS PRN 12/02/22 12/02/22 History Allergies Allergy/AdvReac Type Severity Reaction Status Date / Time Penicillins Allergy Unknown Verified 12/02/22 22:54 latex AdvReac Itching Verified 12/02/22 22:54 Physical Exam Vitals: Vital Signs Temp Pulse Resp BP Pulse Ox 12/03/22 07:35 83 16 168/58 97 12/03/22 06:00 78 18 138/71 12/03/22 04:00 58 L 20 156/85 12/03/22 03:23 61 12/03/22 02:43 61 14 156/85 12/03/22 02:00 68 20 138/124 12/03/22 00:00 67 16 144/83 12/02/22 23:13 81 16 144/83 96 12/02/22 22:20 97.5 F L 70 17 162/82 99 08/03/23 22:00 169/82 12/02/22 21:25 97.5 F L 67 18 169/82 100 12/02/22 20:28 97.6 F 73 17 154/85 100 12/02/22 20:17 79 17 12/02/22 20:00 96 22 174/95 12/02/22 19:29 18 12/02/22 19:28 97.7 F 77 16 174/95 99 12/02/22 19:08 96 14 12/02/22 18:42 97.7 F 84 18 177/87 96 Intake and Output 12/02/22 12/03/22 12/03/22 22:59 06:59 14:59 Output Total 3000 Balance -3000 Output: Urine 3000 Other: Weight 55.338 kg GENERAL: Well-developed in no acute distress. Head exam was generally normal. There was no scleral icterus or corneal arcus. Mucous membranes were moist. HEENT: Head is normocephalic. Pupils are equal, round. Sclerae anicteric. Mucous membranes of the mouth are moist. Neck supple. No JVD or thyromegaly LUNGS: Respirations even and unlabored. Lungs essentially clear to auscultation bilaterally. The patient has coarse crackles in lung bases bilaterally HEART: Regular rate and rhythm. S1 and S2 heard. Systolic murmur noted. ABDOMEN: Soft. Nondistended. Nontender. EXTREMITIES: Normal range of motion. No clubbing or cyanosis. Peripheral pulses intact. No lower extremity edema NEUROLOGIC: Awake and alert. Oriented x 3. Examination of the skin revealed no evidence of significant rashes, suspicious appearing nevi or other concerning lesions. Results - Laboratory Findings CBC and BMP: 12/02/22 19:30 12/02/22 19:30 PT/INR, D-dimer PT 10.0 sec (9.0-12.0) 12/02/22 19:30 INR 0.9 (<1.2) 12/02/22 19:30 Abnormal lab findings: Abnormal Labs 12/02/22 19:30 Chloride 109 H BUN 29 H Creatinine 1.08 H - Diagnostic Findings Chest x-ray: image reviewed CT scan - chest: image reviewed Assessment and Plan Plan: Exertional dyspnea, chronic, the patient has limited bibasilar pulmonary fibrosis. The patient also has possibly some episodes of atrial flutter contributing to her shortness of breath. No hypoxemia. No evidence of any pulmonary embolism. No pneumonia. No hypoxemia and the patient's pulse ox 97% on room air oxygen. Chronic bibasilar pulmonary fibrosis Paroxysmal atrial flutter, current rhythm is sinus with frequent PACs and PVCs Hypertension Hyperlipidemia Hypertensive heart disease with severe LVH and mild pulmonary hypertension Plan No active pulmonary issues and oxygenation is stable Repeat echocardiogram Patient is currently metoprolol 12.5 mg daily. Patient is on amlodipine for blood pressure control Recheck thyroid function tests may need outpatient cafeteria monitor and the patient is going to see Dr. Moody Possible home today No other recommendations from the pulmonary standpoint.
--- NOTE | 2022-12-03 17:47 | CA ---
Transthoracic Echo Report Name: Jenelle Mendosa Age: 87 Gender: F : 1935 Exam Date: 12/03/2022 13:36 Exam Location: [facility] [facility] Ht (in): 67 Wt (lb): 122 Ordering Physician: Renée Davila DO Attending/Referring Phys: Debby Etienne MD [facility] Dentist Teresa Gandhi, RAGHU Procedure CPT: Indications: exertional dyspnea Cardiac Hx: Technical Quality: Good Contrast 1: Total Dose (mL): Contrast 2: Total Dose (mL): MEASUREMENTS (Male / Female) Normal Values 2D ECHO LV Diastolic Diameter PLAX 5.0 cm 4.2 - 5.9 / 3.9 - 5.3 cm LV Systolic Diameter PLAX 2.7 cm IVS Diastolic Thickness 1.3 cm 0.6 - 1.0 / 0.6 - 0.9 cm LVPW Diastolic Thickness 1.3 cm 0.6 - 1.0 / 0.6 - 0.9 cm LV Relative Wall Thickness 0.5 RV Internal Dim ED PLAX 2.8 cm LA Systolic Diameter LX 3.8 cm 3.0 - 4.0 / 2.7 - 3.8 cm LV Diastolic Volume MOD 4C 71.6 cm??? LV Systolic Volume MOD 4C 18.5 cm??? LV Ejection Fraction MOD 4C 74.1 % LV Cardiac Index MOD 4C 2241.6 cm???/min???m??? LV Diastolic Length 4C 7.8 cm LV Systolic Length 4C 6.3 cm LV Diastolic Volume MOD 2C 53.0 cm??? LV Systolic Volume MOD 2C 18.3 cm??? LV Ejection Fraction MOD 2C 65.4 % LV Cardiac Index MOD 2C 1464.2 cm???/min???m??? LV Diastolic Length 2C 7.0 cm LV Systolic Length 2C 5.4 cm LA Volume 63.8 cm??? 18 - 58 / 22 - 52 cm??? M-MODE Aortic Root Diameter MM 3.3 cm MV E Point Septal Separation 0.5 cm AV Cusp Separation MM 1.7 cm DOPPLER AV Peak Velocity 103.6 cm/s AV Peak Gradient 4.3 mmHg MV Area PHT 3.2 cm??? Mitral E Point Velocity 78.5 cm/s Mitral A Point Velocity 98.1 cm/s Mitral E to A Ratio 0.8 MV Deceleration Time 240.3 ms MV E' Velocity 4.6 cm/s Mitral E to MV E' Ratio 17.0 TR Peak Velocity 292.3 cm/s TR Peak Gradient 34.2 mmHg Right Ventricular Systolic Press 39.2 mmHg FINDINGS Left Ventricle Left ventricular ejection fraction is estimated at 55-60 %. Left ventricular cavity size normal. Normal left ventricular wall motion. Mildly increased left ventricular wall thickness. Right Ventricle Normal right ventricular size. Mild pulmonary hypertension. Right ventricular systolic pressure estimated at 39 mm hg. Right Atrium Normal right atrial size. Left Atrium Moderately increased left atrial volume. Mitral Valve Mild thickening/calcification of the anterior mitral valve leaflet. Mild mitral regurgitation. Aortic Valve Trileaflet aortic valve. Aortic valve sclerosis. Tricuspid Valve Structurally normal tricuspid valve. Mild tricuspid regurgitation. Pulmonic Valve Pulmonic valve not well visualized. Pericardium Normal pericardium. No pericardial effusion. Aorta Normal size aortic root and proximal ascending aorta. CONCLUSIONS 1. Normal left ventricular size and systolic function 2. Mild mitral and tricuspid regurgitation with mild pulmonary hypertension Previewed by: Dr. Zander Penn MD (Electronically Signed) Final Date: 03 December 2022 17:46
[2022-12-04] MEDS ORDERED: PANTOPRAZOLE 40 MG TABLET PO SCH (07:30)
[2022-12-04] MEDS: METOPROLOL TARTRATE 12.5 MG TAB PO SCH (08:48)
[2022-12-04] MEDS: amLODIPine 5 MG TAB PO SCH (08:48)
[2022-12-04 09:05] VITALS: RESP 16
--- NOTE | 2022-12-04 11:18 | P.PN ---
Subjective HISTORY OF PRESENT ILLNESS: This is a 87-year-old female with a past medical history significant for hypertension, PACs, PVCs, LVH, and mild pulmonary hypertension. Patient follows in the office with Dr. Moody. We have been asked to see the patient in consultation for exertional dyspnea. Patient examined at the bedside. Patient states she was at an appointment with Dr. Livingston yesterday for evaluation and she has been feeling short of breath for the past 3-4 months. She states that she has a 2 story house and she has been getting short of breath when she is walking up the stairs which is unusual for her. She does report feeling her heart fluttering from time to time. She denies having any chest pain or pressu re. She does report she is also beginning headaches recently. She denies any nausea or vomiting. Denies any dizziness or lightheadedness. Dr. Livingston obtained an EKG and lab work and the patient was sent home. She was called later and told that her d-dimer is elevated and was instructed to come to the emergency room for further evaluation. Patient underwent a chest CT which was negative for pulmonary embolism. Patient's initial EKG when she arrived to the hospital appears to be atrial flutter. The patient does not have a history of atrial flutter. However there has been no episodes of atrial flutter noted on telemetry. Her EKG from Dr. Francis's office and subsequent EKG performed in the emergency room reveals sinus mechanism with PACs and PVCs. * Laboratory data: WBC 6.1. Hemoglobin 13.5. Platelet count 209. Sodium 140. Potassium 4.3. BUN 29. Creatinine 1.08. Troponin negative 1. ProBNP 927. * Current home cardiac medications include metoprolol tartrate 12.5 mg daily and Norvasc 5 mg daily * Most recent echocardiogram obtained in September 2021 revealed ejection fraction 5 5% with severe LVH, mild MR, mild TR 12/04/2022 Patient examined this morning in the chair. Patient's family member present. Patient denies chest pain or pressure. She denies shortness of breath. Vital signs are stable. Telemetry reveals sinus mechanism with no evidence of atrial flutter. Echocardiogram completed revealing ejection fraction 55-60%, mild pulmonary hypertension, mild mitral regurgitation, mild tricuspid regurgitation PHYSICAL EXAM: VITAL SIGNS: Reviewed. GENERAL: Well-developed in no acute distress. HEENT: Head is normocephalic. Pupils are equal, round. Sclerae anicteric. Mucous membranes of the mouth are moist. Neck supple. No JVD or thyromegaly LUNGS: Respirations even and unlabored. Lungs essentially clear to auscultation bilaterally. HEART: Regular rate and rhythm. S1 and S2 heard. Systolic murmur noted. ABDOMEN: Soft. Nondistended. Nontender. EXTREMITIES: Normal range of motion. No clubbing or cyanosis. Peripheral pulses intact. No lower extremity edema NEUROLOGIC: Awake and alert. Oriented x 3. ASSESSMENT: Exertional dyspnea 3-4 months Possible new onset atrial flutter, noted on one EKG, however no episodes of atrial flutter noted on telemetry History of PACs and PVCs Hypertension Hyperlipidemia, intolerant to statin therapy Severe LVH Mild pulmonary hypertension PLAN: Continue current cardiac medications Patient is stable for discharge today from a cardiac standpoint Patient has an appointment scheduled on Tuesday at the cardiology office to obtain a 30 day event monitor to assess for atrial flutter/fibrillation She is to follow up with Dr. Moody in 5 weeks after completion of her event monitor Nurse practitioner note has been reviewed by physician. Signing provider agrees with the documented findings, assessment, and plan of care. Objective - Vital Signs Vital signs: Vital Signs Temp 97.4 F L 12/04/22 07:00 Pulse 78 12/04/22 07:00 Resp 16 12/04/22 07:00 BP 143/84 12/04/22 07:00 Pulse Ox 99 12/04/22 07:00 FiO2 Intake & Output 12/03/22 12/04/22 12/04/22 18:59 06:59 18:59 Intake Total 118 118 Output Total 3000 Balance -2882 118 Weight 55.338 kg Intake: Oral 118 118 Output: Urine 3000 Other: Voiding Method Toilet # Voids 1 - Labs CBC & Chem 7: 12/02/22 19:30 12/02/22 19:30
--- NOTE | 2022-12-04 12:48 | P.HPIM ---
History of Present Illness H&P Date: 12/03/22 Chief Complaint: Shortness of breath/elevated d-dimer 87 year old female presents to the emergency department for evaluation for elevated d-dimer. She reports shortness of breath when she walks long distances. Denies shortness of breath at rest. 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 She was going to have a CTA but reports that her kidney function was too poor for contrast. (Linda Durand) Jenelle is a very pleasant 87-year-old female who follows with Dr. Livingston pulmonology she reported to him today that she has been having worsening exertional dyspnea over the past few months. She states she becomes very dyspneic and tired after walking a flight of stairs. He checked outpatient labs and noted that her d-dimer was elevated he recommended a CTA however she had a low GFR was told to come to the hospital for hydration. Patient denies any significant chest pain she did have a distant history of angina. She has no known history of CHF. Laboratory data: WBC 6.1. Hemoglobin 13.5. Platelet count 209. Sodium 140. Potassium 4.3. BUN 29. Creatinine 1.08. Troponin negative 1. ProBNP 927. Most recent echocardiogram obtained in September 2021 revealed ejection fraction 55% with severe LVH, mild MR, mild TR Review of Systems REVIEW OF SYSTEMS: CONSTITUTIONAL: No fever, no malaise, no fatigue. HEENT: No recent visual problems or hearing problems. Denied any sore throat. CARDIOVASCULAR: No chest pain, orthopnea, PND, no palpitations, no syncope. PULMONARY: No shortness of breath, no cough, no hemoptysis. GASTROINTESTINAL: No diarrhea, no nausea, no vomiting, no abdominal pain. NEUROLOGICAL: No headaches, no weakness, no numbness. HEMATOLOGICAL: Denies any bleeding or petechiae. GENITOURINARY: Denies any burning micturition, frequency, or urgency. MUSCULOSKELETAL/RHEUMATOLOGICAL: Denies any joint pain, swelling, or any muscle pain. ENDOCRINE: Denies any polyuria or polydipsia. The rest of the 14-point review of systems is negative. Past Medical History Past Medical History: GERD/Reflux, Hypertension History of Any Multi-Drug Resistant Organisms: None Reported Date of last positivie culture/infection: 1972 MDRO Source:: perineal Past Surgical History: Hysterectomy, Orthopedic Surgery Additional Past Surgical History / Comment(s): back surgery, kindey stones- surgery to remove stones, left shoulder- plate Past Anesthesia/Blood Transfusion Reactions: Postoperative Nausea & Vomiting (PONV) Past Psychological History: No Psychological Hx Reported Past Alcohol Use History: None Reported Past Drug Use History: None Reported - Past Family History Father Family Medical History: Cancer Additional Family Medical History / Comment(s): lung cancer- age 62 Medications and Allergies Home Medications Medication Instructions Recorded Confirmed Type amLODIPine [Norvasc] 5 mg PO DAILY 12/10/18 12/02/22 History Metoprolol Tartrate [Lopressor] 12.5 mg PO DAILY 12/02/22 12/02/22 History Pantoprazole [Protonix] 40 mg PO [id number] 12/02/22 12/02/22 History amLODIPine [Norvasc] 5 mg PO HS PRN 12/02/22 12/02/22 History Allergies Allergy/AdvReac Type Severity Reaction Status Date / Time Penicillins Allergy Unknown Verified 12/02/22 22:54 latex AdvReac Itching Verified 12/02/22 22:54 Physical Exam Vitals: Vital Signs Temp Pulse Resp BP Pulse Ox 12/03/22 07:35 83 16 168/58 97 12/03/22 06:00 78 18 138/71 12/03/22 04:00 58 L 20 156/85 12/03/22 03:23 61 12/03/22 02:43 61 14 156/85 12/03/22 02:00 68 20 138/124 12/03/22 00:00 67 16 144/83 12/02/22 23:13 81 16 144/83 96 12/02/22 22:20 97.5 F L 70 17 162/82 99 12/02/22 22:00 169/82 12/02/22 21:25 97.5 F L 67 18 169/82 100 12/02/22 20:28 97.6 F 73 17 154/85 100 12/02/22 20:17 79 17 12/02/22 20:00 96 22 174/95 12/02/22 19:29 18 12/02/22 19:28 97.7 F 77 16 174/95 99 12/02/22 19:08 96 14 12/02/22 18:42 97.7 F 84 18 177/87 96 Intake and Output 12/02/22 12/03/22 12/03/22 22:59 06:59 14:59 Other: Weight 55.338 kg VITAL SIGNS: Reviewed. GENERAL: Well-developed in no acute distress. HEENT: Head is normocephalic. Pupils are equal, round. Sclerae anicteric. Mucous membranes of the mouth are moist. Neck supple. No JVD or thyromegaly LUNGS: Respirations even and unlabored. Lungs essentially clear to auscultation bilaterally. HEART: Regular rate and rhythm. S1 and S2 heard. Systolic murmur noted. ABDOMEN: Soft. Nondistended. Nontender. EXTREMITIES: Normal range of motion. No clubbing or cyanosis. Peripheral pulses intact. No lower extremity edema NEUROLOGIC: Awake and alert. Oriented x 3. Results CBC & Chem 7: 12/02/22 19:30 12/02/22 19:30 Labs: Abnormal Lab Results - Last 24 Hours (Table) 12/02/22 Range/Units 19:30 Chloride 109 H (98-107) mmol/L BUN 29 H (7-17) mg/dL Creatinine 1.08 H (0.52-1.04) mg/dL Assessment and Plan Assessment: 1. Exertional dyspnea; likely related to new onset atrial flutter caught on EKG; no further episodes of atrial flutter or fibrillation 2. Hypertension; patient takes metoprolol 12.5 mg daily; amlodipine 5 mg daily 3. Hyperlipidemia; patient not on any statin therapy due to intolerance 4. 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 Chronic bibasilar pulmonary fibrosis; no evidence of PE or pneumonia; patient is currently saturating 97% on room air; pulmonary to see patient and make recommendations 6. GERD/gastritis; Protonix 40 mg daily DVT prophylaxis; SCDs CODE STATUS; full code
[2022-12-04 15:28] VITALS: BP 140/79; PULSE 77; TEMP 97.5
== END 2022-12-04 15:30 | disposition home or self-care (01) ==
LOC: EC 17:54 → 6NMEDSUR 22:36
PROVIDERS: ADMIT Internal Medicine; ATTEND Internal Medicine
DX: R06.09 Other forms of dyspnea (principal); I48.92 Unspecified atrial flutter; J84.10 Pulmonary fibrosis, unspecified; I49.3 Ventricular premature depolarization; I49.1 Atrial premature depolarization; I11.9 Hypertensive heart disease without heart failure; I08.1 Rheumatic disorders of both mitral and tricuspid valves; I27.20 Pulmonary hypertension, unspecified; K21.9 Gastro-esophageal reflux disease without esophagitis; R51.9 Headache, unspecified; R79.89 Other specified abnormal findings of blood chemistry; E78.5 Hyperlipidemia, unspecified; K29.70 Gastritis, unspecified, without bleeding; Z79.899 Other long term (current) drug therapy; Z88.0 Allergy status to penicillin; Z91.040 Latex allergy status; Z90.710 Acquired absence of both cervix and uterus; Z87.442 Personal history of urinary calculi; Z80.1 Family history of malignant neoplasm of trachea, bronchus and lung
CPT/HCPCS: 96360; 99285; 36415; 93005; 93306; 83880; 80053; 84484; 85025; 85610; 85730; 71275; G0378 ×3; Q9967

== ENCOUNTER → 2022-12-02 | Outpatient (CLI) | payer MEDICARE ==
[2022-12-02 17:34] LABS: African American GFR (CKD) 43 (>60 ml/min/1.73 sqM); Blood Urea Nitrogen 32 mg/dL (7-17); Non-African American GFR(CKD) 37 (>60 ml/min/1.73 sqM)
== END | disposition home or self-care (01) ==
LOC: RADCTMAIN 16:52
PROVIDERS: ATTEND Internal Medicine
DX: Z53.9 Procedure and treatment not carried out, unspecified reason (principal)
CPT/HCPCS: 82565; 84520

== ENCOUNTER → 2022-12-02 | Outpatient (CLI) | payer MEDICARE ==
[2022-12-02 17:05] LABS: HCT 38.9 % (37.2-46.3); HGB 12.8 d/dL (12.0-15.0); MCH 30.8 pg (27.0-32.0); MCHC 32.9 d/dL (32.0-37.0); MCV 93.5 FL (80.0-97.0); Mean Platelet Volume 10.3 FL (9.5-12.2); NRBC Per 100 WBC 0 X 10*3/uL (0.00-0.01); Platelet Count 259 X 10*3/uL (140-440); RBC 4.16 X 10*6/uL (4.10-5.20); RDW 14.1 % (11.5-14.5); WBC 6.84 X 10*3/uL (4.50-10.00)
[2022-12-02 17:13] LABS: Erythrocyte Sedimentation Rate 18 mm/Hr (0-30)
[2022-12-02 17:33] LABS: ALT 15 U/L (8-44); AST 23 U/L (13-35); Albumin 4.4 d/dL (3.8-4.9); Albumin/Globulin Ratio 1.63 Ratio (1.60-3.17); Alkaline Phosphatase 70 U/L (41-126); BUN/Creat Ratio 20.62 Ratio (12.00-20.00); Blood Urea Nitrogen 26.8 mg/dL (9.0-27.0); Calcium 9.9 mg/dL (8.7-10.3); Carbon Dioxide 21.6 mmol/L (21.6-31.8); Chloride 104 mmol/L (96-109); Globulin 2.7 d/dL (1.6-3.3); Glucose 102 mg/dL (70-110); Potassium 4.3 mmol/L (3.5-5.5); Sodium 139 mmol/L (135-145); T4, Free (Free Thyroxine) 1.24 ng/dL (0.80-1.80); Total Bilirubin 0.5 mg/dL (0.3-1.2); Total Protein 7.1 d/dL (6.2-8.2)
== END | disposition home or self-care (01) ==
LOC: LABWHC1 11:16
PROVIDERS: ATTEND Internal Medicine
DX: Z00.00 Encounter for general adult medical examination without abnormal findings (principal); R06.02 Shortness of breath; R53.83 Other fatigue; R00.2 Palpitations; R07.89 Other chest pain
CPT/HCPCS: 36415; 80053; 82306; 82607; 84439; 84443; 84484; 85027; 85379; 85652